=== PATIENT | female | born 1955 | race Caucasian/White ===

== ENCOUNTER 2022-12-21 16:53 | Inpatient (IN) | payer MEDICARE, SELFPAY ==
[2022-12-21] VITALS (44 sets, daily range): BP systolic 97–144; BP diastolic 72–101; PULSE 91–130; RESP 10–31; TEMP 35.4–37.8; O2SAT 94–100; BMI 22.0
--- NOTE | 2022-12-21 17:00 | NURSING ---
NO OLD EKG
--- NOTE | 2022-12-21 17:02 | CT_ITS ---
EXAM: CT HEAD WITHOUT INTRAVENOUS CONTRAST CLINICAL INDICATION: Unresponsive TECHNIQUE: Multiple axial images were obtained of the head without intravenous contrast. This CT exam was performed using one or more of the following dose reduction techniques: automated exposure control, adjustment of the mA and/or kV according to patient size, and/or use of iterative reconstruction technique. COMPARISON: No relevant prior studies available. FINDINGS: BRAIN AND EXTRA-AXIAL SPACES: Unremarkable. No intra- or extra-axial hemorrhage. No evidence of acute infarct. No intracranial mass or mass effect. There is preservation of the palacios/white matter interface. Posterior fossa structures are unremarkable. Ventricles are appropriate for age. No hydrocephalus. Basal cisterns are patent. BONES/JOINTS: Unremarkable. No discrete lytic or blastic abnormalities. SINUSES: Unremarkable as visualized. Clear. MASTOID AIR CELLS: Unremarkable. Clear. ORBITS: Visualized globes, extraocular muscles, optic nerves and retrobulbar fat appear unremarkable. CT/Brain/Head without Contrast IMPRESSION: Negative head/brain CT without intravenous contrast. Electronically Signed: Cesar Knott MD at 18:27 EDT ,
[2022-12-21] MEDS: fentaNYL 100 MCG/2 ML Ampul 50 MCG IV (17:20)
[2022-12-21] MEDS: Propofol 10MG/Ml 1,000 MG/100 ML Bottle 3.7 MG CONT INF (17:25)
[2022-12-21] MEDS: fentaNYL drip 100 ML 2.5 MCG CONT INF (17:25)
--- NOTE | 2022-12-21 17:27 | RAD_ITS ---
INDICATION: Dyspnea EXAMINATION/TECHNIQUE: X-RAY - XR Chest 1 View COMPARISON: FINDINGS: LINES/DEVICES: Endotracheal tube with tip 31 mm above the chely. Nasogastric tube in the stomach.. LUNGS: Interstitial thickening and infiltrates in the left lung. Mild right perihilar opacity. No pneumothorax. MEDIASTINUM AND CARDIOVASCULAR STRUCTURES: Cardiac silhouette not enlarged. Central airways and mediastinal contour are unremarkable. BONES AND SOFT TISSUES: Unremarkable. RAD/Chest 1 View (Portable) IMPRESSION: Interstitial thickening and infiltrates in the left lung. Mild right perihilar opacity. Electronically Signed: Ministerio Garcia DO at 17:41 EDT ,
--- NOTE | 2022-12-21 17:30 | ED.RN ---
non-violent restraints placed at this time d/t ET tube.
[2022-12-21 17:34] LABS: Mucous, Urine 0 SEEN /hpf (<or=2+)
[2022-12-21] MEDS: 0.9% Normal Saline (1000mL) 1,000 ML 1000 ML IV (17:34)
[2022-12-21 17:36] LABS: Allen Test Positive; Base Excess -9 mmol/L (-2 to +2); Bicarbonate 17.9 mmol/L (22-26); Blood Gas Specimen Type ART; Mode AC; O2 Delivery Device Adult Vent; PEEP 5; PO2 113 mmHG (75-100); RR 14; SITE R Radial; SO2 98 % (95-99); Total Carbon Dioxide 19 mmol/L; pCO2 38.9 mmHg (35-45); pH 7.27 (7.35-7.45)
[2022-12-21 17:38] LABS: Absolute Lymphocyte Count 5.73 X10^3/uL (0.83-4.51); Absolute Neutrophil Count 0.5 X10^3/uL (2.0-7.7); Basophil# 0.08 X10^3/uL; Basophil% 1.2 % (0-1); Eosinophil# 0.08 X10^3/uL; Eosinophils% 1.2 % (0-5); Hematocrit 41.2 % (37-47); Hemoglobin 13.2 g/dL (12.0-15.0); Lymphocyte # 5.73 X10^3/ul (0.83-4.51); Lymphocyte % 83.8 % (19-41); Mean Corpuscular Hgb 29.4 pg (27.0-32.0); Mean Corpuscular Volume 91.8 fL (81-99); Monocyte% 4.4 % (0-10); NRBC Flagged by Analyzer 0.6 % (0-5); Neutrophil # 0.45 X10^3/uL (2.7-7.7); Neutrophil % 6.5 % (47-70); POSITIVE DIFFERENTIAL YES; POSITIVE MORPHOLOGY YES; Platelet Count 190 K/mm3 (150-450); RBC Distribution Width CV 12.9 % (11.6-14.6); RBC Distribution Width SD 43.4 fl (35.1-43.9); Red Blood Count 4.49 M/mm3 (4.2-5.4); White Blood Count 6.8 K/mm3 (4.4-11.0)
[2022-12-21 17:45] LABS: International Normalized Ratio 1.3; Partial Thromboplast Time 41.1 Seconds (24.1-36.2); Prothrombin Time (Protime)PT. 16.5 SECONDS (11.7-14.9)
[2022-12-21 18:03] LABS: AST(SGOT) 385 U/L (15-37); Alanine Aminotransfer ALT/SGPT 392 U/L (13-56); Alkaline Phosphatase 133 U/L (45-117); Anion Gap 16 (5-15); BUN 18 mg/dL (7-18); BUN/Creat Ratio 12.6 RATIO (10-20); Calcium,Total 8.3 mg/dL (8.5-10.1); Chloride 107 mmol/L (98-107); Creatinine, Serum 1.43 mg/dL (0.55-1.02); EST Glomerular Filtration Rate 39 mL/min (>60); Est Glom Filt Rate - Afr Amer 47 mL/min (>60); Estimated Creatinine Clearance 36.72 ml/min; Globulin 3.1 g/dL (2.2-4.2); Glucose 265 mg/dL (74-106); Potassium 3.2 mmol/L (3.5-5.1); Protein, Total 6.1 g/dL (6.4-8.2); Sodium Level 144 mmol/L (136-145); Troponin-I HS (w/2H Reflex) 85 pg/mL (3.0-54.0)
[2022-12-21 18:05] LABS: Color, Urine Yellow (Yellow); Glucose, Dipstick 100 mg/dl (Normal); Ketone-Dipstick 5 mg/dl (Negative); Leukocyte Esterase-Dipstick Negative /ul (Negative); Nitrite-Dipstick Negative (Negative); Occult Blood-Urine 250 /ul (Negative); Protein-Dipstick 500 mg/dl (Negative); Specific Gravity, Urine 1.015 (1.002-1.030); Urine Bilirubin Dipstick Negative (Negative); Urine Clarity Sl. Cloudy (Clear); Urine Urobilinogen Normal (Normal); Urine pH 6.5 (5.0 - 8.0)
[2022-12-21 18:08] LABS: CPK Total, Creatine Kinase 144 U/L (26-192); Triglycerides 184 mg/dL
[2022-12-21 18:16] LABS: Lactic Acid 8.9 mmol/L (0.4-1.9)
[2022-12-21 18:29] LABS: Differential Indicated SCAN CRITERIA MET
[2022-12-21 18:30] LABS: Red Blood Cells-Urine 50-100 SEEN /hpf (0-5); White Blood Cells 0-5 SEEN /hpf (0-5)
[2022-12-21 18:30] LABS: Atypical Lymphocyte 1+ %; Differential Comment SEE COMMENTS
[2022-12-21 18:31] LABS: Bacteria 1+ /hpf (None Seen); Hyaline Cast 0-5 SEEN /lpf (0-5); Squamous Epithelial Cells - UA 0-5 SEEN /hpf (5-10)
[2022-12-21 18:31] LABS: Anisocytosis RARE; Macrocytosis RARE; Platelet Estimate ADEQUATE (ADEQ); Red Cell Morphology N CHROM NORMAL (NORM C&C)
[2022-12-21] MEDS: 0.9% Normal Saline (1000mL) 1,000 ML 999 ML IV ×2 (18:37→20:45)
[2022-12-21] MEDS: Piperacil/Tazobactam 4.5 GM in 0.9% Normal Saline (100mL MB+) 100 ML IV (18:38)
--- NOTE | 2022-12-21 18:47 | EX.ED.DYSGE1 ---
HPI History of Present Illness Chief Complaint: Unresponsive Informant: spouse/S.O. Onset/Context/Timing Onset: Today Context: Sudden Onset Timing: Continuous Quality: Unresponsive Location: Generalized Narrative Narrative: Patient presents after cardiac arrest. states that they were outside and he was trying to remove a tree stump using a chain and his truck. states that she was picking up sticks and then bent over. states he got out of his truck and went over and saw that she was unresponsive. states he laid her flat and started CPR. states he called 911. EMS continued CPR. EMS validation protocols and was able to get a return of spontaneous circulation. EMS inserted a Artemio airway. [facility] Medical History (Updated 12/21/22 @ 20:[address] Camilo Burnett DO) Asthma GERD (gastroesophageal reflux disease) Obstructive sleep apnea Allergy/AdvReac Type Severity Reaction Status Date / Time Unable to Assess Allergy Verified 12/21/22 17:05 Family History (Updated 12/21/22 @ 21:[address] Jt Dunaway MD) Other CVA (cerebral vascular accident) Diabetes Heart disease Surgical History (Updated 12/21/22 @ 21:[address] Jt Dunaway MD) H/O section Surgical History unable to obtain unable to obtain Social History Smoking Status: Never smoker ROS ROS ED Review of Systems ROS Unobtainable: due to endotracheal tube, due to mental condition and due to mental status EXAM Physical Exam Const Vital Signs: 12/21/22 16:55 12/21/22 16:59 12/21/22 17:24 Temperature 97.5 F L Temperature Source Temporal Pulse Rate 130 H 121 H Respiratory Rate 20 H 15 Blood Pressure 144/93 H 104/81 H Blood Pressure Mean 110 88 Pulse Ox 100 100 96 Oxygen Delivery Method Ambu-Bag Ambu-Bag Mechanical Ventilator Fraction of Inspired Oxygen (FIO2) 12/21/22 17:44 12/21/22 18:09 12/21/22 16:58 Temperature Temperature Source Pulse Rate 122 H 121 H 122 H Respiratory Rate 16 18 Blood Pressure 109/79 111/76 Blood Pressure Mean 89 87 Pulse Ox 99 Oxygen Delivery Method Fraction of Inspired Oxygen (FIO2) 70 12/21/22 17:02 12/21/22 18:00 12/21/22 18:30 Temperature Temperature Source Pulse Rate 120 H 120 H Respiratory Rate 16 18 Blood Pressure 111/84 H 115/91 H Blood Pressure Mean 93 99 Pulse Ox 94 94 Oxygen Delivery Method Mechanical Ventilator Mechanical Ventilator Mechanical Ventilator Fraction of Inspired Oxygen (FIO2) 12/21/22 18:41 12/21/22 19:15 12/21/22 19:20 Temperature 95.8 F L 95.9 F L Temperature Source Core Core Pulse Rate 120 H 115 H Respiratory Rate 18 16 Blood Pressure 115/91 H 123/90 H Blood Pressure Mean 99 101 Pulse Ox 95 96 Oxygen Delivery Method Mechanical Ventilator Mechanical Ventilator Fraction of Inspired Oxygen (FIO2) 12/21/22 18:48 12/21/22 18:50 12/21/22 19:00 Temperature Temperature Source Pulse Rate 119 H 118 H 115 H Respiratory Rate 11 L 21 H 12 Blood Pressure 114/92 H Blood Pressure Mean 99 Pulse Ox 95 96 97 Oxygen Delivery Method Mechanical Ventilator Fraction of Inspired Oxygen (FIO2) 12/21/22 19:09 12/21/22 19:10 12/21/22 19:15 Temperature Temperature Source Pulse Rate 121 H 114 H Respiratory Rate 27 H 14 Blood Pressure 123/90 H Blood Pressure Mean 101 Pulse Ox 95 96 Oxygen Delivery Method Fraction of Inspired Oxygen (FIO2) 60 12/21/22 19:20 12/21/22 19:30 12/21/22 19:40 Temperature Temperature Source Pulse Rate 117 H 116 H 120 H Respiratory Rate 18 19 H 20 H Blood Pressure 128/83 H Blood Pressure Mean 96 Pulse Ox 96 96 96 Oxygen Delivery Method Mechanical Ventilator Fraction of Inspired Oxygen (FIO2) 12/21/22 19:45 12/21/22 19:50 12/21/22 20:00 Temperature Temperature Source Pulse Rate 118 H 112 H 113 H Respiratory Rate 21 H 19 H 19 H Blood Pressure 144/79 H 121/101 H Blood Pressure Mean 98 109 Pulse Ox 97 97 96 Oxygen Delivery Method Mechanical Ventilator Fraction of Inspired Oxygen (FIO2) 12/21/22 20:10 12/21/22 20:15 12/21/22 20:20 Temperature Temperature Source Pulse Rate 118 H 116 H 118 H Respiratory Rate 16 31 H Blood Pressure 130/87 H Blood Pressure Mean 96 Pulse Ox 97 96 97 Oxygen Delivery Method Fraction of Inspired Oxygen (FIO2) 12/21/22 20:30 12/21/22 20:40 12/21/22 20:45 Temperature Temperature Source Pulse Rate 120 H 114 H 117 H Respiratory Rate 13 12 Blood Pressure 129/80 H 122/86 H Blood Pressure Mean 96 99 Pulse Ox 97 97 97 Oxygen Delivery Method Mechanical Ventilator Mechanical Ventilator Fraction of Inspired Oxygen (FIO2) 12/21/22 20:50 Temperature Temperature Source Pulse Rate 116 H Respiratory Rate 11 L Blood Pressure Blood Pressure Mean Pulse Ox 96 Oxygen Delivery Method Fraction of Inspired Oxygen (FIO2) Positive well nourished and well developed General Appearance ED: well developed and NAD HEENT Reports moist mucous membranes Resp clear to auscultation bilaterally Resp Narrative: Breath sounds were equal bilaterally with mechanical ventilation. Cardio regular rhythm Rate: tachycardic GI non-distended Palpation: soft Extremity General Extremety ED: Negative for edema General Extremity: Negative for edema Neuro Neuro Narrative: Patient is unresponsive on examination. Patient was unable to protect her airway. Patient was not following commands. MDM MDM MDM Narrative Medical decision making narrative: Differential diagnosis includes cardiac dysrhythmia, cardiac ischemia, sepsis, infection, anemia, coagulopathy, electrolyte abnormality, stroke, and intracranial bleeding. CT scan of the brain will be obtained to assess for intracranial bleeding and stroke. Chest x-ray will be obtained to assess for pneumonia and pneumothorax. EKG will be obtained to assess for cardiac dysrhythmia and cardiac ischemia. CBC will be obtained to assess for leukocytosis and anemia. Comprehensive metabolic profile will be obtained to assess for hepatic function, renal function, and electrolyte abnormality. Serum lactate will be obtained to assess for sepsis. Urinalysis will be obtained to assess for urinary tract infection. High-sensitivity troponin will be obtained to assess for cardiac ischemia. 2-hour repeat high-sensitivity troponin will be obtained to assess for ongoing cardiac ischemia. Lab Data Attestation: I reviewed the patient's lab results. Lab results narrative: CBC was reviewed and was essentially within normal limits. However there was 2.9% immature granulocytes on differential. PT with INR and PTT were reviewed. Pro time was 16.5, INR is 1.3, and PTT was 41.1. Comprehensive metabolic profile showed a mild hypokalemia of 3.2 and creatinine of 1.43. Glucose was slightly elevated at 265. Anion gap was slightly increased at 16. AST was slightly elevated at 385 and ALT was 392. Alkaline phosphatase was slightly elevated at 133. Serum lactate was reviewed and was elevated at 8.9. Total CPK was normal at 944. High-sensitivity troponin was reviewed and was slightly elevated at 85. Urinalysis was reviewed. Occult blood was 250 with 50-100 red blood cells. There is 1+ bacteria but 0-5 white blood cells. Leukocyte esterase was negative. Arterial blood gas was reviewed and shows a pH of 2.72, PCO2 of 38.9, PO2 of only 13.4, bicarb of 17.9, and 97.8% oxygen saturation. Labs: Laboratory Results - last 24 hr 12/21/22 12/21/22 12/21/22 17:00 17:25 19:56 WBC 6.8 RBC 4.49 Hgb 13.2 Hct 41.2 MCV 91.8 MCH 29.4 MCHC 32.0 RDW Std Deviation 43.4 RDW Coeff of Suzette 12.9 Plt Count 190 MPV 12.0 Immature Gran % (Auto) 2.900 H Neut % (Auto) 6.5 L Lymph % (Auto) 83.8 H [place] % (Auto) 4.4 Eos % (Auto) 1.2 Baso % (Auto) 1.2 H Absolute Neuts (auto) 0.5 L Absolute Lymphs (auto) 5.73 H Nucleated RBC % 0.6 Differential Comment SEE COMMENTS Diff Path Review May foll Atypical Lymphocytes 1+ Platelet Estimate ADEQUATE RBC Morphology N CHROM Anisocytosis RARE Macrocytosis RARE PT 16.5 H INR 1.3 APTT 41.1 H Sodium 144 Potassium 3.2 L Chloride 107 Carbon Dioxide 21.0 Anion Gap 16 H BUN 18 Creatinine 1.43 H Estim Creat Clear Calc 36.72 Est GFR (MDRD) Af Amer 47 L Est GFR (MDRD) Non-Af 39 L BUN/Creatinine Ratio 12.6 Glucose 265 H Lactic Acid 8.9 H* Calcium 8.3 L Magnesium 2.0 Total Bilirubin 0.20 AST 385 H ALT 392 H Alkaline Phosphatase 133 H Total Creatine Kinase 144 Troponin I High Sens 85 H 83306 H* Total Protein 6.1 L Albumin 3.0 L Globulin 3.1 Albumin/Globulin Ratio 1.0 Triglycerides 184 Urine Color Yellow Urine Clarity Sl. Cloudy Urine pH 6.5 Ur Specific [place] 1.015 Urine Protein 500 H Urine Glucose (UA) 100 H Urine Ketones 5 H Urine Occult Blood 250 H Urine Nitrite Negative Urine Bilirubin Negative Urine Urobilinogen Normal Ur Leukocyte Esterase Negative Urine RBC 50-100 SEEN Urine WBC 0-5 SEEN Ur Squamous Epith Cells 0-5 SEEN Urine Bacteria 1+ Hyaline Casts 0-5 SEEN Urine Mucus 0 SEEN ABG Data ABG results: ABG 12/21/22 17:32 Specimen Type ART Sample Site R Radial pH 7.27 L Bicarbonate Actual 17.9 L Total CO2 19 Base Excess -9 L O2 Saturation 98 O2 % 70.0 ABG pCO2 38.9 ABG pO2 113 H Bello Test Positive Respiration Rate 14 O2 Delivery Device Adult Vent Vent Mode AC Tidal Volume 400.0 POC PEEP 5 Radiography Diagnostic Testing: Clinical Impression(s) from Imaging Studies Brain CT 12/21/22 17:02 IMPRESSION: Negative head/brain CT without intravenous contrast. Electronically Signed: Cesar Knott MD at 18:27 EDT , Chest X-Ray 12/21/22 17:27 IMPRESSION: Interstitial thickening and infiltrates in the left lung. Mild right perihilar opacity. Electronically Signed: Ministerio Garcia DO at 17:41 EDT , CT scan of the brain was obtained. There is no acute intracranial abnormality. This was interpreted by the radiologist and was also independently reviewed by myself. Portable 1 view chest x-ray was obtained. On my independent interpretation, lung almanzar show interstitial thickening and infiltrates of the left lung. There is mild right perihilar opacity noted. There is normal cardiac silhouette. Bony thorax is normal. Radiologist also interpreted the x-ray and agrees. EKG Initial EKG: Attestation: I personally reviewed and interpreted this EKG as follows: Interpretation: Sinus Tachycardia (126) and S-T Depression Comments: EKG was obtained. On my independent interpretation, it shows a sinus tachycardia with a rate of 126. MI interval was 124, QRS interval was 110, and QTc interval was 466. [place] was normal at 13. There is ST depression and leads II, III, aVF, and V3 through V6. Prior EKG tracings: not available for review Prior: No Prior Management Discussion w/another healthcare provider: Hospitalist (Dr. Dunaway) and Bulk System Operator (Dr. Kirkpatrick) Treatment and Re-Evaluation :: Patient was given IV fluids. Patient was started on Zosyn and vancomycin. Patient was also started on fentanyl and propofol drips for sedation. Case was discussed with Dr. Kirkpatrick from ICU. He recommended obtaining a sputum culture. This was ordered. Case was discussed with the hospitalist. He will admit the patient to ICU. Family understands and is agreeable with the plan. All questions were answered. Critical Care Time Critical Care Time: Yes Critical care time (excluding procedures): 30-74 minutes (44), Including time spent:, Discussing w/Patient &/or Family/[employer], Discussing w/Consultants, Arranging Admission or Transfer and Performing Direct Patient Care at Bedside Discharge Plan Dx/Rx/DC Orders Clinical Impression: Cardiopulmonary arrest with successful resuscitation, Pneumonia, Acidosis, lactic Disposition Disposition: Acute Care Hospital [facility] Discharge Date/Time: 12/21/22 22:30
[2022-12-21] MEDS: Vancomycin HCl 1,500 MG in 0.9% Normal Saline (500mL Bag) 500 ML 250 MG IV (19:14)
[2022-12-21 19:44] LABS: Reflex Troponin-HS? (from REC) Y
[2022-12-21 20:40] LABS: Troponin-I HS 10605 pg/mL (3.0-54.0)
--- NOTE | 2022-12-21 20:40 | ED.RN ---
Dr. Burnett aware of troponin
--- NOTE | 2022-12-21 21:04 | CT_ITS ---
We are attempting to reach an attending provider to discuss findings. An addendum with communication details will be sent when the communication is complete. EXAM: CT ANGIOGRAPHY CHEST WITHOUT AND WITH INTRAVENOUS CONTRAST CLINICAL INDICATION: dyspnea TECHNIQUE: Helically acquired angiography images were obtained of the chest without and with intravenous contrast. This CT exam was performed using one or more of the following dose reduction techniques: automated exposure control, adjustment of the mA and/or kV according to patient size, and/or use of iterative reconstruction technique. MIP reconstructed images were created and reviewed. CONTRAST: IV 75mL [id number] RADIATION DOSE: Total DLP: 307.26 mGy-cm. COMPARISON: Portable chest radiograph of this same date. FINDINGS: PULMONARY ARTERIES: Unremarkable. Normal in caliber. No evidence of pulmonary embolism. AORTA: Unremarkable. Normal in caliber. No evidence of dissection. GREAT VESSELS OF AORTIC ARCH: Unremarkable. Normal in caliber. No evidence of dissection. LUNGS AND PLEURAL SPACES: There is a tiny pneumothorax on the right, located laterally near the right rib fractures. No left-sided pneumothorax. Groundglass opacities are noted centrally within the upper lobes, greater on the left. Airspace disease is noted within the dependent portion of both upper lobes, left greater than right. Extensive consolidation with air bronchograms noted within the lower lobes, left greater than right. Trace of pleural fluid on the right. No cavitary pulmonary lesion. HEART: Coronary artery calcification is present. No significant pericardial effusion. MEDIASTINUM: Unremarkable. Esophagus is unremarkable. No hiatal hernia. Normal to upper normal size mediastinal lymph nodes are present. No adenopathy is identified. THYROID: Unremarkable. No thyroid lesions. BONES/JOINTS: There are acute mildly displaced fractures of the lateral right fourth, fifth, sixth, and seventh ribs. No acute left rib fracture. Accentuated thoracic kyphosis. Midthoracic degenerative spurring. No acute thoracic wedge compression fracture. No acute sternal fracture. No suspicious lytic or blastic abnormality. INTRAPERITONEAL SPACE: Visualized portions of the liver, adrenal glands, pancreas and kidneys are unremarkable. Dense calcification noted within the lower pole of the spleen, which is normal in size. No pneumoperitoneum. TUBES, LINES AND DEVICES: ET tube is in place within the trachea with its tip above the level of chely. NG tube is in place and extends into the gastric lumen. CT/CTA Chest W/WO Contrast IMPRESSION: 1. Negative for PE. 2. No thoracic aortic dissection. 3. Extensive bilateral pulmonary infiltrates, left greater than right, most likely pulmonary edema though superimposed pneumonia could also be present. 4. Acute lateral right rib fractures with a tiny/1% right-sided pneumothorax. Minimal right pleural effusion. 5. ET tube and NG tube in place. Nonstandard communication protocol initiated. Electronically Signed: Carlo Collier MD at 1:06 EDT ,
--- NOTE | 2022-12-21 21:19 | PCM.HP.STD ---
Documented by User: Dr. Jt Dunaway MD 12/22/22 00:58 HPI - General General Date of Admission: 12/21/22 Date of Service: 12/21/22 Chief Complaint: Cardiac arrest HPI Narrative ALYSHA MCMULLEN, is a 67 F significant history of seasonal allergies and asthma who presented to emergency department with cardiac arrest. Of note patient and her was clearing some wood at the backyard. Specifically patient was gardening some sticks while her was getting ready to move some log via chain who hooked to a truck. The patient who was previously doing good and had not been seen recently sick was suddenly found slumping over. Her noted the patient was unresponsive so he began CPR and called 911. EMS attended to the patient. Patient had ACLS and defibrillation and was brought to emergency department. At the emergency department a Artemio airway was switched with ET tube and patient was put on mechanical ventilation. Patient troponin was 85. Repeat troponin was 10,605. Emergency dependably discussed the case with critical care physician and patient will be admitted to the intensive care units [facility] Medical History (Updated 12/22/22 @ 00:[address] Jt Dunaway MD) Asthma GERD (gastroesophageal reflux disease) Obstructive sleep apnea Allergy/AdvReac Type Severity Reaction Status Date / Time Unable to Assess Allergy Verified 12/21/22 17:05 Family History (Updated 12/21/22 @ 21:[address] Jt Dunaway MD) Other CVA (cerebral vascular accident) Diabetes Heart disease Surgical History (Updated 12/21/22 @ 21:[address] Jt Dunaway MD) H/O section Surgical History unable to obtain Social History Smoking Status: Never smoker ROS Review of Systems ROS Unobtainable: other Details: Pertinent positives and pertinent negatives that could be provided by patient's family is as noted in HPI. All other systems were reviewed patient's family did not know or they were negative. Vital Signs Vital Signs Vital Signs: 12/21/22 16:55 12/21/22 16:59 12/21/22 17:24 Temperature 97.5 F L Temperature Source Temporal Pulse Rate 130 H 121 H Respiratory Rate 20 H 15 Blood Pressure 144/93 H 104/81 H Blood Pressure Mean 110 88 Pulse Ox 100 100 96 Oxygen Delivery Method Ambu-Bag Ambu-Bag Mechanical Ventilator Fraction of Inspired Oxygen (FIO2) 12/21/22 17:44 12/21/22 18:09 12/21/22 16:58 Temperature Temperature Source Pulse Rate 122 H 121 H 122 H Respiratory Rate 16 18 Blood Pressure 109/79 111/76 Blood Pressure Mean 89 87 Pulse Ox 99 Oxygen Delivery Method Fraction of Inspired Oxygen (FIO2) 70 12/21/22 17:02 12/21/22 18:00 12/21/22 18:30 Temperature Temperature Source Pulse Rate 120 H 120 H Respiratory Rate 16 18 Blood Pressure 111/84 H 115/91 H Blood Pressure Mean 93 99 Pulse Ox 94 94 Oxygen Delivery Method Mechanical Ventilator Mechanical Ventilator Mechanical Ventilator Fraction of Inspired Oxygen (FIO2) 12/21/22 18:41 12/21/22 19:15 12/21/22 19:20 Temperature 95.8 F L 95.9 F L Temperature Source Core Core Pulse Rate 120 H 115 H Respiratory Rate 18 16 Blood Pressure 115/91 H 123/90 H Blood Pressure Mean 99 101 Pulse Ox 95 96 Oxygen Delivery Method Mechanical Ventilator Mechanical Ventilator Fraction of Inspired Oxygen (FIO2) 12/21/22 18:48 12/21/22 18:50 12/21/22 19:00 Temperature Temperature Source Pulse Rate 119 H 118 H 115 H Respiratory Rate 11 L 21 H 12 Blood Pressure 114/92 H Blood Pressure Mean 99 Pulse Ox 95 96 97 Oxygen Delivery Method Mechanical Ventilator Fraction of Inspired Oxygen (FIO2) 12/21/22 19:09 12/21/22 19:10 12/21/22 19:15 Temperature Temperature Source Pulse Rate 121 H 114 H Respiratory Rate 27 H 14 Blood Pressure 123/90 H Blood Pressure Mean 101 Pulse Ox 95 96 Oxygen Delivery Method Fraction of Inspired Oxygen (FIO2) 60 12/21/22 19:20 12/21/22 19:30 12/21/22 19:40 Temperature Temperature Source Pulse Rate 117 H 116 H 120 H Respiratory Rate 18 19 H 20 H Blood Pressure 128/83 H Blood Pressure Mean 96 Pulse Ox 96 96 96 Oxygen Delivery Method Mechanical Ventilator Fraction of Inspired Oxygen (FIO2) 12/21/22 19:45 12/21/22 19:50 12/21/22 20:00 Temperature Temperature Source Pulse Rate 118 H 112 H 113 H Respiratory Rate 21 H 19 H 19 H Blood Pressure 144/79 H 121/101 H Blood Pressure Mean 98 109 Pulse Ox 97 97 96 Oxygen Delivery Method Mechanical Ventilator Fraction of Inspired Oxygen (FIO2) Weight Weight: 62 kg Body Mass Index (BMI) 22.0 Physical Exam Narrative Physical exam: General: Intubated and sedated on mechanical ventilation Head: Normocephalic, atraumatic, no tenderness Eyes: Miotic pupils (on fentanyl and propofol drip). ENT: ET tube in place. Neck: Nontender, No thyromegaly. CVS: Tachycardia. S1-S2 present. No murmur, gallop or rub. Respiratory : On ventilator. Rales; Chest wall nontender Abdomen: Soft, nontender, nondistended, normal bowel sounds, no masses : Villatoro catheter in place Back: Nontender, no CVA tenderness, Skin: Normal color, no trauma, abrasions Neuro: Intubated and sedated on mechanical ventilation Psychiatry: Intubated and sedated on mechanical ventilation Results Lab / Micro Data 12/21/22 17:00 12/21/22 17:00 Labs: Laboratory Results - last 24 hr 12/21/22 17:00: WBC 6.8, RBC 4.49, Hgb 13.2, Hct 41.2, MCV 91.8, MCH 29.4, MCHC 32.0, RDW Std Deviation 43.4, RDW Coeff of Suzette 12.9, Plt Count 190, MPV 12.0, Immature Gran % (Auto) 2.900 H, Neut % (Auto) 6.5 L, Lymph % (Auto) 83.8 H, [place] % (Auto) 4.4, Eos % (Auto) 1.2, Baso % (Auto) 1.2 H, Absolute Neuts (auto) 0.5 L, Absolute Lymphs (auto) 5.73 H, Nucleated RBC % 0.6, Differential Comment SEE COMMENTS, Diff Path Review May foll, Atypical Lymphocytes 1+, Platelet Estimate ADEQUATE, RBC Morphology N CHROM, Anisocytosis RARE, Macrocytosis RARE, PT 16.5 H, INR 1.3, APTT 41.1 H, Sodium 144, Potassium 3.2 L, Chloride 107, Carbon Dioxide 21.0, Anion Gap 16 H, BUN 18, Creatinine 1.43 H, Estim Creat Clear Calc 36.72, Est GFR (MDRD) Af Amer 47 L, Est GFR (MDRD) Non-Af 39 L, BUN/Creatinine Ratio 12.6, Glucose 265 H, Lactic Acid 8.9 H*, Calcium 8.3 L, Total Bilirubin 0.20, AST 385 H, ALT 392 H, Alkaline Phosphatase 133 H, Total Creatine Kinase 144, Troponin I High Sens 85 H, Total Protein 6.1 L, Albumin 3.0 L, Globulin 3.1, Albumin/Globulin Ratio 1.0, Triglycerides 184 12/21/22 17:25: Urine Color Yellow, Urine Clarity Sl. Cloudy, Urine pH 6.5, Ur Specific Hudson 1.015, Urine Protein 500 H, Urine Glucose (UA) 100 H, Urine Ketones 5 H, Urine Occult Blood 250 H, Urine Nitrite Negative, Urine Bilirubin Negative, Urine Urobilinogen Normal, Ur Leukocyte Esterase Negative, Urine RBC 50-100 SEEN, Urine WBC 0-5 SEEN, Ur Squamous Epith Cells 0-5 SEEN, Urine Bacteria 1+, Hyaline Casts 0-5 SEEN, Urine Mucus 0 SEEN 12/21/22 19:56: Troponin I High Sens 35435 H* Micro: Microbiology 12/21/22 17:11 Mucosa - Nasopharyngeal Rapid RSV (DFA) - Final 12/21/22 17:05 Nasal Secretion SARS-CoV-2 & FLU Antigen (Rapid) - Final ABG Data ABG results: ABG 12/21/22 17:32 Specimen Type ART Sample Site R Radial pH 7.27 L Bicarbonate Actual 17.9 L Total CO2 19 Base Excess -9 L O2 Saturation 98 O2 % 70.0 ABG pCO2 38.9 ABG pO2 113 H Bello Test Positive Respiration Rate 14 O2 Delivery Device Adult Vent Vent Mode AC Tidal Volume 400.0 POC PEEP [address] 12/21/22 17:02 IMPRESSION: Negative head/brain CT without intravenous contrast. Electronically Signed: Cesar Knott MD at 18:27 EDT , Chest X-Ray 12/21/22 17:27 IMPRESSION: Interstitial thickening and infiltrates in the left lung. Mild right perihilar opacity. Electronically Signed: Ministerio Garcia DO at 17:41 EDT Reading Location ID and State: [facility] / [place] Tel [phone], Service support , Assessment & Plan Assessment/Plan (1) Pneumonia: QUALIFIERS: Pneumonia type: aspiration pneumonia Aspiration pneumonia type: due to gastric secretions Laterality: bilateral Lung location: unspecified part of lung Qualified Code(s): J69.0 - Pneumonitis due to inhalation of food and vomit (2) Cardiopulmonary arrest with successful resuscitation: (3) Septic shock: PLAN: Plan Cardiac arrest with ROSC Status post intubation. Admit to intensive care unit. Impression of brain CT by radiology: Negative head/brain CT without intravenous contrast. Hospitalist independent interpretation of brain CT: Agrees with radiology interpretation Echocardiogram Chest CT ordered at the emergency department, follow-up Septic shock from possible aspiration pneumonia. The patient presented with sepsis due to (infection) with acute sepsis related organ dysfunction as evidenced by (organ dysfunction/s). SIRS criteria: Respiratory rate more than 20 Heart rate more than 90 White count of 6.8. Lactic acid of 8.9 but acute secondary to hypoxia. Trend Tmax of 100.1 Fahrenheit. SARS Cov 2 and flu antigen negative. Blood cultures ordered emergency department, follow. Urine culture ordered emergency department, follow. Radiologist impression of chest x-ray: Interstitial thickening and infiltrate in the left lung. Mild right perihilar opacity. Vancomycin and Zosyn was started emergency department and continued. Elevated troponin Initial troponin was 85. Trended to 10,605. Cannot rule out non-STEMI. However cannot rule out rule out elevated troponin from chest compression and defibrillation Full dose aspirin given and baby aspirin daily. ED doc discussed with cardiology on-call and recommendation was to start beta-vu if blood pressure is stable. We will start patient on low-dose metoprolol. DVT prophylaxis On heparin drip for elevated troponin. Time spent in the patient's overall evaluation,decision-making process, review of diagnostic data, adjustment of management, discussion with other providers, nursing nursing and ancillary staff involved in patient's care documentation, 75 minutes. Sepsis Attestation Sepsis Alert: Yes Sepsis Attestation: Agree w/Sepsis Date exam was performed: 12/22/22 Time exam was performed: 21:30 Possible Source of Sepsis: Pulmonary Sepsis Organ Dysfunction Criteria Present: Lactic Acid > 2 mmol/L Fluid Resuscitation Fluid Resuscitation ordered: 30 ml/kg fluid bolus ordered Charges/Coding Visit Charges Inpatient E&M: 19502 Init Hosp L3 Documented by User: Tim Valenzuela 12/21/22 22:55 HPI - General General Date of Admission: 12/21/22 [facility] Medical History (Updated 12/22/22 @ 00:[address] Jt Dunaway MD) Asthma GERD (gastroesophageal reflux disease) Obstructive sleep apnea Allergy/AdvReac Type Severity Reaction Status Date / Time Unable to Assess Allergy Verified 12/21/22 17:05 Family History (Updated 12/21/22 @ 21:[address] Jt Dunaway MD) Other CVA (cerebral vascular accident) Diabetes Heart disease Surgical History (Updated 12/21/22 @ 21:[address] Jt Dunaway MD) H/O section Surgical History unable to obtain Social History Smoking Status: Never smoker Results Lab / Micro Data 12/21/22 17:00 12/21/22 17:00 Assessment & Plan Assessment/Plan (1) Pneumonia: QUALIFIERS: Pneumonia type: aspiration pneumonia Aspiration pneumonia type: due to gastric secretions Laterality: bilateral Lung location: unspecified part of lung Qualified Code(s): J69.0 - Pneumonitis due to inhalation of food and vomit (2) Cardiopulmonary arrest with successful resuscitation: (3) Septic shock:
[2022-12-21 21:28] LABS: Reflex Lactate? Y
[2022-12-21] MEDS: Metoprolol Tartrate 5 MG/5 ML Vial IV (21:58)
[2022-12-21] MEDS: Heparin Injection (Vial) 5,000 UNIT/ML VIAL 4000 UNIT IV (23:33)
[2022-12-21] MEDS: HEPARIN/D5w 25,000 UNITS 25,000 UNITS/250 ML IV.SOLN. 7 UNITS CONT INF (23:37)
[2022-12-22] VITALS (38 sets, daily range): BP systolic 104–161; BP diastolic 63–90; PULSE 83–123; RESP 14–18; TEMP 37.2–38.3; O2SAT 30–100
[2022-12-22 00:14] LABS: CPK Total, Creatine Kinase 1904 U/L (26-192); Triglycerides 91 mg/dL
[2022-12-22 00:16] LABS: Troponin-I HS 24946 pg/mL (3.0-54.0)
[2022-12-22] MEDS: 0.9% Normal Saline (1000mL) 1,000 ML 75 ML IV ×2 (00:21→13:21)
[2022-12-22] MEDS: Chlorhexidine 15 ML PO ×3 (00:22→21:13)
[2022-12-22] MEDS: Potassium Chloride Oral Soln 20 MEQ/15 ML UDC 40 MEQ PO (00:26)
[2022-12-22] MEDS: Famotidine 20 MG Tablet GT ×3 (00:26→21:13)
[2022-12-22] MEDS: Aspirin 325 MG Tablet PO (00:27)
--- NOTE | 2022-12-22 00:49 | RAD_ITS ---
EXAM: XR ABDOMEN, 1 VIEW CLINICAL INDICATION: OG Placement TECHNIQUE: Frontal supine view of the abdomen/pelvis. COMPARISON: Portable chest radiograph and CTA chest of 12/21/2022. FINDINGS: LOWER THORAX: Dense consolidation noted within the left lower lobe, silhouetting the left hemidiaphragm, and this airspace disease has worsened since the earlier chest radiograph. GASTROINTESTINAL TRACT: Unremarkable. Non-obstructive. No bowel or stomach distention. ORGANS: Excreted contrast noted within both intrarenal collecting systems; no hydronephrosis. No organomegaly. No abnormal calcifications. BONES/JOINTS: Minimal thoracolumbar dextroscoliosis which may be positional. No acute osseous abnormality. SOFT TISSUES: No acute pathology. TUBES, LINES AND DEVICES: OG tube has been advanced and is in satisfactory position. The tip of the tube is projected over the proximal gastric body while the sidehole of the tube is projected in the region of the gastric cardia. RAD/Abdomen Single View IMPRESSION: 1. Satisfactory OG tube positioning. 2. Worsening consolidation within the left lower lobe. Electronically Signed: Carlo Collier MD at 2:23 EDT ,
[2022-12-22 01:05] LABS: Allen Test Positive; Base Excess -5 mmol/L (-2 to +2); Bicarbonate 20.2 mmol/L (22-26); Blood Gas Specimen Type ART; Mode AC; O2 Delivery Device Adult Vent; PEEP 5; PO2 68 mmHG (75-100); RR 14; SITE R Radial; SO2 92 % (95-99); Total Carbon Dioxide 21 mmol/L; pCO2 36.9 mmHg (35-45); pH 7.35 (7.35-7.45)
--- NOTE | 2022-12-22 01:49 | PCM.RX.CS ---
Consult Antibiotic Management Pharmacy has been consulted to manage selected antiobiotic: Vancomycin Type of Intervention Type of Consult: Follow-up Labs Labs: Sodium 144 mmol/L (136-145) 12/21/22 17:00 Potassium 3.2 mmol/L (3.5-5.1) L 12/21/22 17:00 Chloride 107 mmol/L (98-107) 12/21/22 17:00 Carbon Dioxide 21.0 mmol/L (21.0-32.0) 12/21/22 17:00 Anion Gap 16 (5-15) H 12/21/22 17:00 BUN 18 mg/dL (7-18) 12/21/22 17:00 Creatinine 1.43 mg/dL (0.55-1.02) H 12/21/22 17:00 Est GFR (MDRD) Af Amer 47 mL/min (>60) L 12/21/22 17:00 Est GFR (MDRD) Non-Af 39 mL/min (>60) L 12/21/22 17:00 BUN/Creatinine Ratio 12.6 RATIO (10-20) 12/21/22 17:00 Glucose 265 mg/dL (74-106) H 12/21/22 17:00 Microbiology Microbiology: Microbiology 12/21/22 17:25 Urine Catheter - Villatoro Legionella Antigen - Final 12/21/22 17:25 Urine Catheter - Villatoro Streptococcus pneumoniae Antigen (M - Final 12/21/22 17:11 Mucosa - Nasopharyngeal Rapid RSV (DFA) - Final 12/21/22 17:05 Nasal Secretion SARS-CoV-2 & FLU Antigen (Rapid) - Final Estimated Creatinine Clearance Estimated Creatinine Clearance: 36.5 Goal Trough Goal Trough: 15-20 mcg/mL Pharmacy Plan for Drug Dosing Pharmacy Plan for Drug Dosing: Pharmacy Service will continue to monitor and adjust dosing as required. Follow-Up Labs Follow-Up Labs: Trough: Vancomycin Date/Time Labs Ordered Labs to be done on [date and time ordered]: 12/23 @ 6661
[2022-12-22] MEDS: Propofol 10MG/Ml 1,000 MG/100 ML Bottle 9.3 MG CONT INF (03:51)
[2022-12-22 03:52] LABS: Absolute Lymphocyte Count 0.72 X10^3/uL (0.83-4.51); Absolute Neutrophil Count 13.6 X10^3/uL (2.0-7.7); Basophil# 0.03 X10^3/uL; Basophil% 0.2 % (0-1); Hematocrit 41.7 % (37-47); Hemoglobin 13.9 g/dL (12.0-15.0); Lymphocyte # 0.72 X10^3/ul (0.83-4.51); Lymphocyte % 4.7 % (19-41); Mean Corp Hgb Conc 33.3 g/dL (32-36); Mean Corpuscular Hgb 29.5 pg (27.0-32.0); Mean Corpuscular Volume 88.5 fL (81-99); Mean Platelet Vol. 10.9 fl (6.2-12.0); Monocyte# 0.88 X10^3/uL; Monocyte% 5.8 % (0-10); NRBC Flagged by Analyzer 0 % (0-5); Neutrophil # 13.59 X10^3/uL (2.7-7.7); Platelet Count 214 K/mm3 (150-450); RBC Distribution Width CV 13.2 % (11.6-14.6); RBC Distribution Width SD 43.2 fl (35.1-43.9); Red Blood Count 4.71 M/mm3 (4.2-5.4); White Blood Count 15.3 K/mm3 (4.4-11.0)
[2022-12-22 04:21] LABS: ALB/GLOB Ratio 0.9 RATIO (0.9-2.4); AST(SGOT) 480 U/L (15-37); Alanine Aminotransfer ALT/SGPT 380 U/L (13-56); Albumin, Serum 3.1 g/dL (3.2-5.0); Alkaline Phosphatase 112 U/L (45-117); Anion Gap 8 (5-15); BUN 14 mg/dL (7-18); BUN/Creat Ratio 13.3 RATIO (10-20); Calcium,Total 7.7 mg/dL (8.5-10.1); Chloride 114 mmol/L (98-107); Creatinine, Serum 1.05 mg/dL (0.55-1.02); EST Glomerular Filtration Rate 56 mL/min (>60); Est Glom Filt Rate - Afr Amer 68 mL/min (>60); Globulin 3.3 g/dL (2.2-4.2); Glucose 177 mg/dL (74-106); Potassium 3.3 mmol/L (3.5-5.1); Protein, Total 6.4 g/dL (6.4-8.2); Sodium Level 146 mmol/L (136-145)
[2022-12-22 05:53] LABS: Partial Thromboplast Time > 200.0 Seconds (24.1-36.2)
--- NOTE | 2022-12-22 05:55 | ECHOD_ITS ---
Reason For Study: DYSPNEA Procedure This was a 2D Doppler, Color Flow transthoracic echocardiogram. Technically difficult study due to patient intubation. Patient scanned laying flat. Exam performed portable in ICU/CCU. Left Ventricle Normal size and thickness. The left ventricular ejection fraction is 55 %. Normal diastology for age. Mild apical hypokinesis. Right Ventricle Mildly dilated right ventricle. Normal systolic function. Atria The left and right atria are normal. Normal right atrium. Mitral Valve Normal mitral valve. Tricuspid Valve Normal tricuspid valve. Aortic Valve Normal aortic valve. Pulmonic Valve The pulmonic valve is not well visualized. Great Vessels The aortic root is not well visualized. Pericardium/Pleural Trivial pericardial effusion. MMode/2D Measurements & Calculations LVIDd: 3.3 cm IVSd: 0.85 cm Ao root diam: 2.8 cm LVIDs: 2.4 cm LVPWd: 0.87 cm FS: 26.4 % LAV(MOD-sp4): 40.4 ml LVAd ap4: 18.0 cm2 SV(MOD-sp4): 23.4 ml LVLd ap4: 7.4 cm EDV(MOD-sp4): 35.8 ml EDV(sp4-el): 37.1 ml LVAs ap4: 9.5 cm2 LVLs ap4: 6.4 cm ESV(MOD-sp4): 12.4 ml ESV(sp4-el): 12.0 ml EF(MOD-sp4): 65.3 % EF(sp4-el): 67.7 % SV(sp4-el): 25.1 ml LA A4 area: 15.1 cm2 LA dimension(2D): 3.0 cm RA A4 area: 12.2 cm2 TAPSE: 1.3 cm Time Measurements MV dec time: 0.11 sec Doppler Measurements & Calculations MV E max jose: 64.4 cm/sec Lat Peak E' Jose: 12.6 cm/sec Med Peak E' Jose: 7.9 cm/sec MV A max jose: 80.1 cm/sec E/E' lat: 5.1 E/E' med: 8.2 MV E/A: 0.80 MV V2 max: 87.1 cm/sec Ao V2 max: 135.8 cm/sec MV max P.0 mmHg MV dec slope: 605.9 cm/sec2 Ao max P.4 mmHg MV V2 mean: 58.2 cm/sec Ao V2 mean: 103.7 cm/sec MV mean P.5 mmHg Ao mean P.8 mmHg MV V2 VTI: 19.9 cm Ao V2 VTI: 26.7 cm AV (velocity ratio): 0.71 LV V1 max: 102.4 cm/sec PA V2 max: 101.2 cm/sec LV V1 max P.3 mmHg PA V2 mean: 74.5 cm/sec LV V1 mean P.7 mmHg LV V1 mean: 77.2 cm/sec LV V1 VTI: 19.1 cm ECHO/Echo Complete Interpretation Summary The left ventricular ejection fraction is 55 %. Mild apical hypokinesis Mildly dilated right ventricle. Ordering Physician: Jt Dunaway Referring Physician: ILENE JIMENEZ Performed By: Stephanie Tobin RCS
--- NOTE | 2022-12-22 06:49 | PCM.RX.CS ---
Consult Antibiotic Management Pharmacy has been consulted to manage selected antiobiotic: Vancomycin Type of Intervention Type of Consult: Follow-up Suspected Infection Suspected Infection: Pneumonia Labs Labs: Sodium 146 mmol/L (136-145) H 12/22/22 03:20 Potassium 3.3 mmol/L (3.5-5.1) L 12/22/22 03:20 Chloride 114 mmol/L (98-107) H 12/22/22 03:20 Carbon Dioxide 24.0 mmol/L (21.0-32.0) 12/22/22 03:20 Anion Gap 8 (5-15) 12/22/22 03:20 BUN 14 mg/dL (7-18) 12/22/22 03:20 Creatinine 1.05 mg/dL (0.55-1.02) H 12/22/22 03:20 Est GFR (MDRD) Af Amer 68 mL/min (>60) 12/22/22 03:20 Est GFR (MDRD) Non-Af 56 mL/min (>60) L 12/22/22 03:20 BUN/Creatinine Ratio 13.3 RATIO (10-20) 12/22/22 03:20 Glucose 177 mg/dL (74-106) H 12/22/22 03:20 Microbiology Microbiology: Microbiology 12/21/22 17:25 Urine Catheter - Villatoro Legionella Antigen - Final 12/21/22 17:25 Urine Catheter - Villatoro Streptococcus pneumoniae Antigen (M - Final 12/21/22 17:11 Mucosa - Nasopharyngeal Rapid RSV (DFA) - Final 12/21/22 17:05 Nasal Secretion SARS-CoV-2 & FLU Antigen (Rapid) - Final Goal Trough Goal Trough: 15-20 mcg/mL Pharmacy Plan for Drug Dosing Pharmacy Plan for Drug Dosing: DAILY ASSESSMENT Current Vancomycin Dose: 750mg Q24H Number of Doses Received: 1500mg x1 Current Renal Function: sCr 1.05 / CrCl 50 ml/min Renal Function Trend: slightly improved Lab/Micro: pending Any Change in Vanc Plan: Yes - increase Vancomycin dosing regimen to 500mg Q12H Pending Level: Vancomycin trough @ 0630 12/23/22 Pharmacy Service will continue to monitor and adjust dosing as required. Follow-Up Labs Follow-Up Labs: Trough: Vancomycin Date/Time Labs Ordered Labs to be done on [date and time ordered]: 12/23/22 0630
--- NOTE | 2022-12-22 07:05 | PCM.PN.HOSP ---
Subjective Subjective Intubated and sedated, family at bedside, presently getting echocardiogram Objective Data Objective Data Vital Signs: Vital Signs Temp Pulse Resp BP Pulse Ox O2 Del Method FiO2 99.4 F H 89 18 104/70 99 Mechanical Ventilator 50 12/22/22 06:00 12/22/22 06:00 12/22/22 06:00 12/22/22 06:00 12/22/22 06:00 12/22/22 06:00 12/22/22 06:00 Oxygen Delivery Method Mechanical Ventilator Weight: 59.3 kg Body Mass Index (BMI) 22.0 Intake & Output: Intake and Output for Last 24 Hours 12/20/22 12/21/22 12/22/22 23:59 23:59 23:59 Intake Total 3703.86 / 3718.16 401.21 / 401.21 Output Total 1650 / 1650 Balance 3703.86 / 2618.16 -1248.79 / -1248.79 Lab / Micro Data 12/22/22 03:20 12/22/22 03:20 Labs: Laboratory Results - last 24 hr 12/21/22 17:00: WBC 6.8, RBC 4.49, Hgb 13.2, Hct 41.2, MCV 91.8, MCH 29.4, MCHC 32.0, RDW Std Deviation 43.4, RDW Coeff of Suzette 12.9, Plt Count 190, MPV 12.0, Immature Gran % (Auto) 2.900 H, Neut % (Auto) 6.5 L, Lymph % (Auto) 83.8 H, [place] % (Auto) 4.4, Eos % (Auto) 1.2, Baso % (Auto) 1.2 H, Absolute Neuts (auto) 0.5 L, Absolute Lymphs (auto) 5.73 H, Nucleated RBC % 0.6, Differential Comment SEE COMMENTS, Diff Path Review May foll, Atypical Lymphocytes 1+, Platelet Estimate ADEQUATE, RBC Morphology N CHROM, Anisocytosis RARE, Macrocytosis RARE, PT 16.5 H, INR 1.3, APTT 41.1 H, Sodium 144, Potassium 3.2 L, Chloride 107, Carbon Dioxide 21.0, Anion Gap 16 H, BUN 18, Creatinine 1.43 H, Estim Creat Clear Calc 36.72, Est GFR (MDRD) Af Amer 47 L, Est GFR (MDRD) Non-Af 39 L, BUN/Creatinine Ratio 12.6, Glucose 265 H, Lactic Acid 8.9 H*, Calcium 8.3 L, Total Bilirubin 0.20, AST 385 H, ALT 392 H, Alkaline Phosphatase 133 H, Total Creatine Kinase 144, Troponin I High Sens 85 H, Total Protein 6.1 L, Albumin 3.0 L, Globulin 3.1, Albumin/Globulin Ratio 1.0, Triglycerides 184 12/21/22 17:25: Urine Color Yellow, Urine Clarity Sl. Cloudy, Urine pH 6.5, Ur Specific [place] 1.015, Urine Protein 500 H, Urine Glucose (UA) 100 H, Urine Ketones 5 H, Urine Occult Blood 250 H, Urine Nitrite Negative, Urine Bilirubin Negative, Urine Urobilinogen Normal, Ur Leukocyte Esterase Negative, Urine RBC 50-100 SEEN, Urine WBC 0-5 SEEN, Ur Squamous Epith Cells 0-5 SEEN, Urine Bacteria 1+, Hyaline Casts 0-5 SEEN, Urine Mucus 0 SEEN 12/21/22 19:56: Magnesium 2.0, Troponin I High Sens 39821 H* 12/21/22 23:15: Total Creatine Kinase 1904 H, Troponin I High Sens 92433 H*, Triglycerides 91 12/22/22 03:20: WBC 15.3 H, RBC 4.71, Hgb 13.9, Hct 41.7, MCV 88.5, MCH 29.5, MCHC 33.3, RDW Std Deviation 43.2, RDW Coeff of Suzette 13.2, Plt Count 214, MPV 10.9, Immature Gran % (Auto) 0.300, Neut % (Auto) 89.0 H, Lymph % (Auto) 4.7 L, [place] % (Auto) 5.8, Eos % (Auto) 0.0, Baso % (Auto) 0.2, Absolute Neuts (auto) 13.6 H, Absolute Lymphs (auto) 0.72 L, Nucleated RBC % 0, Sodium 146 H, Potassium 3.3 L, Chloride 114 H, Carbon Dioxide 24.0, Anion Gap 8, BUN 14, Creatinine 1.05 H, Estim Creat Clear Calc 50.00, Est GFR (MDRD) Af Amer 68, Est GFR (MDRD) Non-Af 56 L, BUN/Creatinine Ratio 13.3, Glucose 177 H, Lactic Acid 4.0 H*, Calcium 7.7 L, Total Bilirubin 0.50, AST 480 H, ALT 380 H, Alkaline Phosphatase 112, Total Protein 6.4, Albumin 3.1 L, Globulin 3.3, Albumin/Globulin Ratio 0.9 12/22/22 05:20: APTT > 200.0 H* Micro: Microbiology 12/21/22 17:25 Urine Catheter - Villatoro Legionella Antigen - Final 12/21/22 17:25 Urine Catheter - Villatoro Streptococcus pneumoniae Antigen (M - Final 12/21/22 17:11 Mucosa - Nasopharyngeal Rapid RSV (DFA) - Final 12/21/22 17:05 Nasal Secretion SARS-CoV-2 & FLU Antigen (Rapid) - Final ABG Data ABG results: ABG 12/21/22 12/22/22 17:32 01:01 Specimen Type ART ART Sample Site R Radial R Radial pH 7.27 L 7.35 Bicarbonate Actual 17.9 L 20.2 L Total CO2 19 21 Base Excess -9 L -5 L O2 Saturation 98 92 L O2 % 70.0 50.0 ABG pCO2 38.9 36.9 ABG pO2 113 H 68 L Bello Test Positive Positive Respiration Rate 14 14 O2 Delivery Device Adult Vent Adult Vent Vent Mode AC AC Tidal Volume 400.0 400.0 POC PEEP 5 5 Radiography Diagnostic Testing: Radiology Impression Brain CT 12/21/22 17:02 IMPRESSION: Negative head/brain CT without intravenous contrast. Electronically Signed: Cesar Knott MD at 18:27 EDT , Chest X-Ray 12/21/22 17:27 IMPRESSION: Interstitial thickening and infiltrates in the left lung. Mild right perihilar opacity. Electronically Signed: Ministerio Garcia DO at 17:41 EDT , Chest CTA 12/21/22 21:04 IMPRESSION: 1. Negative for PE. 2. No thoracic aortic dissection. 3. Extensive bilateral pulmonary infiltrates, left greater than right, most likely pulmonary edema though superimposed pneumonia could also be present. 4. Acute lateral right rib fractures with a tiny/1% right-sided pneumothorax. Minimal right pleural effusion. 5. ET tube and NG tube in place. Nonstandard communication protocol initiated. Electronically Signed: Carlo Collier MD at 1:06 EDT , ADDENDUM: 12/22/22 0120 IMPRESSION: 1. Negative for PE. 2. No thoracic aortic dissection. 3. Extensive bilateral pulmonary infiltrates, left greater than right, most likely pulmonary edema though superimposed pneumonia could also be present. 4. Acute lateral right rib fractures with a tiny/1% right-sided pneumothorax. Minimal right pleural effusion. 5. ET tube and NG tube in place. Nonstandard communication protocol initiated. N.B. : The above Results were Read Back by Carlo Collier MD to Deyanira Garcia RN, and understanding confirmed on 12/22/2022 01:13:17 (ET). Electronically Signed: Carlo Collier MD at 1:06 EDT , KUB X-Ray 12/22/22 00:49 IMPRESSION: 1. Satisfactory OG tube positioning. 2. Worsening consolidation within the left lower lobe. Electronically Signed: Carlo Collier MD at 2:23 EDT , Physical Exam Narrative General: Intubated and sedated HEENT: Atraumatic, normocephalic Eyes: Eyes closed, no spontaneous opening Neck: Supple Respiratory: Mechanically ventilated Cardiovascular: Regular rate and rhythm GI: Soft, nontender, nondistended Musculoskeletal: Presently sedated and not moving extremities spontaneously Neuro: Unable to participate in neuro exam secondary to intubated and sedated Skin: No rashes appreciated Psych: Unable to cooperate secondary to intubated and sedated Assessment & Plan Assessment/Plan (1) Pneumonia: QUALIFIERS: Aspiration pneumonia type: due to gastric secretions Laterality: bilateral Lung location: unspecified part of lung Pneumonia type: aspiration pneumonia Qualified Code(s): J69.0 - Pneumonitis due to inhalation of food and vomit (2) Cardiopulmonary arrest with successful resuscitation: (3) Septic shock: PLAN: Plan #Cardiac arrest with ROSC -Patient presented as an out of hospital cardiac arrest, has been started CPR prior to arrival and was continued by EMS and EMS was able to get ROSC, patient intubated in the emergency department and work-up obtained -Intubated and admitted to ICU -CT head without any bleeding or acute pathology -CTA with 1% minimal right-sided pneumothorax and pulmonary edema versus pneumonia with infiltrates -Troponin and lactic acid elevated, unclear primary or secondary at this time however lactic acid downtrending with supportive care -Suspicion for underlying infection/sepsis -Broad-spectrum antibiotics -Fluids -Patient on heparin drip -Echocardiogram ordered #Concern for sepsis from possible pneumonia. -Patient presented and had left shift on CBC in ED, creatinine was 1.43 without known baseline however today decreased to 1.05 so suspect YASH when patient presented with additional lactic acid of 8.9 and elevated liver enzymes, white blood cell count increased to 15.3 today could be reactive -Lactic acid downtrending -CT with concern for pulmonary edema versus pneumonia -Patient given fluids and BP responded -On broad-spectrum antibiotics -Panculture, blood cultures and urine cultures pending -RSV, COVID, flu negative, urine antigens negative #Elevated troponin -Initial troponin was 85. Trended to 10,605, further up trended to 25,000 -Cannot rule out NSTEMI however could be secondary to cardiac arrest and chest compressions and defibrillation -Cardiology on-call recommended starting beta-vu blood pressure tolerated so this has been started, patient on aspirin, patient on heparin drip and cardiology consulted #Transaminitis -Suspect shock liver secondary to cardiac arrest and CPR versus underlying sepsis though suspect the former, continue to trend #Hypokalemia -We will order further replacement DVT prophylaxis On heparin drip for elevated troponin. Time spent in the patient's overall evaluation,decision-making process, review of diagnostic data, adjustment of management, discussion with other providers, nursing nursing and ancillary staff involved in patient's care documentation, 51 minutes. Charges/Coding Visit Charges Inpatient E&M: 91743 Subs Hosp L3
--- NOTE | 2022-12-22 07:31 | CON.PCM.CC_ITS ---
Assessment & Plan Assessment/Plan (1) Cardiopulmonary arrest with successful resuscitation: PLAN: Plan RECOMMENDATIONS: 1. Minimize sedation for neurochecks 2. Continue empiric antibiotics for now 3. Wean oxygen as tolerated. Spontaneous breathing and awakening trials per protocol 4. Attempt normothermia 5. Continue heparin drip. Await echocardiogram IMPRESSIONS: 1. Cardiopulmonary arrest secondary to ventricular fibrillation with ROSC Unclear downtime. Appears to be between 5 and 10 minutes of downtime at a minimum. Patient is currently sedated to allow for ventilator synchrony. We will attempt to minimize sedation for neurochecks. We will attempt to keep normothermic given the most recent data. Patient is on a heparin drip at this time. Echocardiogram has been ordered. Patient does have a substantial elevation of troponin. It is unclear if patient had an NSTEMI leading to V-fib versus a result of the cardiopulmonary arrest. Patient did have significant lactic acidosis on presentation, but this appears to be improving. 2. Acute respiratory failure Patient with infiltrates, it is unclear if this is secondary to pulmonary contusion versus pneumonia. Patient is on empiric antibiotics at this time. Patient does not have significant wheezing to suggest asthma as an etiology. Patient does have a rib fracture, likely secondary to CPR. Patient reportedly h as a very small pneumothorax, but does not have any tension physiology at this time. Patient should have a chest x-ray with any hemodynamic changes. 3. Possible anoxic brain injury Unclear downtime at this time. Patient did receive epinephrine x2 along with a cardioversion for V-fib arrest. Patient reportedly was posturing initially, but is too sedated to evaluate at this time. We will attempt to decrease sedation and evaluate neuro status. Patient is currently a full code. Will discuss with family about goals of therapy. 4. Asthma/GERD/CAMILO Complicates care, management, recovery and prognosis. We will need to get patient's home CPAP settings at extubation, but patient currently intubated. Patient does not appear to be in acute asthma exacerbation at this time clinically. Pepcid is likely sufficient for GI prophylaxis and GERD. Likely initiate tube feeds today. TIME: 45 minutes critical care time spent addressing patient's cardiopulmonary arrest, acute respiratory failure, possible anoxic brain injury, review of all data and collaboration with care team HPI Consult Data Date of Consult: 12/22/22 HPI Narrative Reason for Consultation: Cardiac arrest HPI Narrative: ALYSHA MCMULLEN is a 67 F, with past medical history listed below, who presents to [facility] 12/21/2022 after sudden cardiac arrest. Patient was reportedly outside with her and became unresponsive. Patient reportedly had rapid CPR by her and 911 was called. EMS did report ROSC. EMS had noted ventricular fibrillation and defibrillation was initiated. Patient did receive 2 doses of epinephrine and a dose of sodium bicarbonate. In the ER, patient was afebrile and tachycardic at 130 bpm. Patient was saturating 100% with bag mask ventilation, but was immediately intubated for airway protection. Laboratory data showed a white blood cell count of 6.8, hemoglobin of 13.2 and platelet count of 190. Coagulation studies were within normal limits. Chemistry showed a potassium of 3.2, creatinine of 1.4 and glucose of 265. Lactate was elevated at 8.9 and there was a slight increase in liver enzymes. UA was relatively unremarkable except for some glucosuria. An ABG showed acute metabolic acidosis with minimal respiratory compensation and increased AA gradient. CT of the head was unremarkable and a chest x-ray showed interstitial thickening with infiltrates. Patient was initiated on empiric antibiotics following a sputum culture. Patient currently is intubated and sedated. Patient reportedly had posturing previously with discontinuation of propofol. Patient does remain on a heparin drip, along with Vanco and Zosyn. Patient has not had any significant ectopy noted. Patient is not able to provide a review of systems secondary to hemodynamic status. [facility] Medical History Asthma GERD (gastroesophageal reflux disease) Obstructive sleep apnea Allergy/AdvReac Type Severity Reaction Status Date / Time Unable to Assess Allergy Verified 12/21/22 17:05 Family History Other CVA (cerebral vascular accident) Diabetes Heart disease Surgical History H/O section Surgical History unable to obtain Social History Smoking Status: Never smoker ROS Review of Systems ROS Unobtainable: due to mental status Physical Exam Const Constitutional Narrative: RASS -4. Good vent synchrony. Appears stated age. General Appearance: patient mechanically ventilated HEENT normocephalic, head/scalp atraumatic and moist oral mucous membranes Eyes conjunctivae normal and no scleral icterus Neck no lymphadenopathy, supple and no JVD Chest inspection of chest normal Resp normal respiratory effort Auscultation: Negative for rales, rhonchi or wheezes Cardio regular rate, regular rhythm, S1 normal heart sound, S2 normal heart sound, no murmurs, no rub and no gallops GI normal to inspection, nondistended, normoactive bowel sounds Extremity no clubbing, cyanosis or edema Neuro Neuro Narrative: Patient does have a cough gag, corneal and pupillary reflex. Additional exam limited secondary to sedation Psych Mood & Affect: flat affect Medical Records Data Attestation: I reviewed the patient's medical records Lab / Micro Data Attestation: I reviewed the patient's lab results. 12/22/22 03:20 12/22/22 03:20 Labs: Laboratory Results - last 24 hr 12/21/22 17:00: WBC 6.8, RBC 4.49, Hgb 13.2, Hct 41.2, MCV 91.8, MCH 29.4, MCHC 32.0, RDW Std Deviation 43.4, RDW Coeff of Suzette 12.9, Plt Count 190, MPV 12.0, Immature Gran % (Auto) 2.900 H, Neut % (Auto) 6.5 L, Lymph % (Auto) 83.8 H, [place] % (Auto) 4.4, Eos % (Auto) 1.2, Baso % (Auto) 1.2 H, Absolute Neuts (auto) 0.5 L , Absolute Lymphs (auto) 5.73 H, Nucleated RBC % 0.6, Differential Comment SEE COMMENTS, Diff Path Review May foll, Atypical Lymphocytes 1+, Platelet Estimate ADEQUATE, RBC Morphology N CHROM, Anisocytosis RARE, Macrocytosis RARE, PT 16.5 H, INR 1.3, APTT 41.1 H, Sodium 144, Potassium 3.2 L, Chloride 107, Carbon Diox joel 21.0, Anion Gap 16 H, BUN 18, Creatinine 1.43 H, Estim Creat Clear Calc 36.72, Est GFR (MDRD) Af Amer 47 L, Est GFR (MDRD) Non-Af 39 L, BUN/Creatinine Ratio 12.6, Glucose 265 H, Lactic Acid 8.9 H*, Calcium 8.3 L, Total Bilirubin 0.20, AST 385 H, ALT 392 H, Alkaline Phosphatase 133 H, Total Creatine Kinase 144, Troponin I High Sens 85 H, Total Protein 6.1 L, Albumin 3.0 L, Globulin 3.1, Albumin/Globulin Ratio 1.0, Triglycerides 184 12/21/22 17:25: Urine Color Yellow, Urine Clarity Sl. Cloudy, Urine pH 6.5, Ur Specific [place] 1.015, Urine Protein 500 H, Urine Glucose (UA) 100 H, Urine Ketones 5 H, Urine Occult Blood 250 H, Urine Nitrite Negative, Urine Bilirubin Negative, Urine Urobilinogen Normal, Ur Leukocyte Esterase Negative, Urine RBC 50-100 SEEN, Urine WBC 0-5 SEEN, Ur Squamous Epith Cells 0-5 SEEN, Urine Bacteria 1+, Hyaline Casts 0-5 SEEN, Urine Mucus 0 SEEN 12/21/22 19:56: Magnesium 2.0, Troponin I High Sens 00969 H* 12/21/22 23:15: Total Creatine Kinase 1904 H, Troponin I High Sens 79158 H*, Triglycerides 91 12/22/22 03:20: WBC 15.3 H, RBC 4.71, Hgb 13.9, Hct 41.7, MCV 88.5, MCH 29.5, MCHC 33.3, RDW Std Deviation 43.2, RDW Coeff of Suzette 13.2, Plt Count 214, MPV 10.9, Immature Gran % (Auto) 0.300, Neut % (Auto) 89.0 H, Lymph % (Auto) 4.7 L, [place] % (Auto) 5.8, Eos % (Auto) 0.0, Baso % (Auto) 0.2, Absolute Neuts (auto) 13.6 H, Absolute Lymphs (auto) 0.72 L, Nucleated RBC % 0, Sodium 146 H, Potassium 3.3 L, Chloride 114 H, Carbon Dioxide 24.0, Anion Gap 8, BUN 14, Creatinine 1.05 H, Estim Creat Clear Calc 50.00, Est GFR (MDRD) Af Amer 68, Est GFR (MDRD) Non-Af 56 L, BUN/Creatinine Ratio 13.3, Glucose 177 H, Lactic Acid 4.0 H*, Calcium 7.7 L, Total Bilirubin 0.50, AST 480 H, ALT 380 H, Alkaline Phosphatase 112, Total Protein 6.4, Albumin 3.1 L, Globulin 3.3, Albumin/Globulin Ratio 0.9 12/22/22 05:20: APTT > 200.0 H* Micro: Microbiology 12/21/22 17:25 Urine Catheter - Villatoro Legionella Antigen - Final 12/21/22 17:25 Urine Catheter - Villatoro Streptococcus pneumoniae Antigen (M - Final 12/21/22 17:11 Mucosa - Nasopharyngeal Rapid RSV (DFA) - Final 12/21/22 17:05 Nasal Secretion SARS-CoV-2 & FLU Antigen (Rapid) - Final ABG Data ABG results: ABG 12/21/22 12/22/22 17:32 01:01 Specimen Type ART ART Sample Site R Radial R Radial pH 7.27 L 7.35 Bicarbonate Actual 17.9 L 20.2 L Total CO2 19 21 Base Excess -9 L -5 L O2 Saturation 98 92 L O2 % 70.0 50.0 ABG pCO2 38.9 36.9 ABG pO2 113 H 68 L Bello Test Positive Positive Respiration Rate 14 14 O2 Delivery Device Adult Vent Adult Vent Vent Mode AC AC Tidal Volume 400.0 400.0 POC PEEP 5 5 Attestation: I personally reviewed and interpreted this ABG as follows: (See HP I) Radiology Impression Brain CT 12/21/22 17:02 IMPRESSION: Negative head/brain CT without intravenous contrast. Electronically Signed: Cesar Knott MD at 18:27 EDT , Chest X-Ray 12/21/22 17:27 IMPRESSION: Interstitial thickening and infiltrates in the left lung. Mild right perihilar opacity. Electronically Signed: Ministerio Garcia DO at 17:41 EDT , Chest CTA 12/21/22 21:04 IMPRESSION: 1. Negative for PE. 2. No thoracic aortic dissection. 3. Extensive bilateral pulmonary infiltrates, left greater than right, most likely pulmonary edema though superimposed pneumonia could also be present. 4. Acute lateral right rib fractures with a tiny/1% right-sided pneumothorax. Minimal right pleural effusion. 5. ET tube and NG tube in place. Nonstandard communication protocol initiated. Electronically Signed: Carlo Collier MD at 1:06 EDT , ADDENDUM: 12/22/22 0120 IMPRESSION: 1. Negative for PE. 2. No thoracic aortic dissection. 3. Extensive bilateral pulmonary infiltrates, left greater than right, most likely pulmonary edema though superimposed pneumonia could also be present. 4. Acute lateral right rib fractures with a tiny/1% right-sided pneumothorax. Minimal right pleural effusion. 5. ET tube and NG tube in place. Nonstandard communication protocol initiated. N.B. : The above Results were Read Back by Carlo Collier MD to Deyanira Garcia RN, and understanding confirmed on 12/22/2022 01:13:17 (ET). Electronically Signed: Carlo Collier MD at 1:06 EDT , KUB X-Ray 12/22/22 00:49 IMPRESSION: 1. Satisfactory OG tube positioning. 2. Worsening consolidation within the left lower lobe. Electronically Signed: Carlo Collier MD at 2:23 EDT , Charges/Coding Procedures Hospitalists Procedures: [id number] Critial Care 1st Hr
[2022-12-22] MEDS: Vancomycin IV 500 MG/100 ML BAG 100 MG IV ×2 (07:44→19:54)
[2022-12-22] MEDS: 0.9% Saline Lock 10 ML Syringe IV ×2 (07:44→19:54)
[2022-12-22] MEDS: Aspirin 81 MG TAB.CHEW GT (08:54)
[2022-12-22] MEDS: Potassium Chloride 10mEq/100mL 10 MEQ/100 ML IV.SOLN. 100 MEQ IV BOLUS ×2 (08:54→09:56)
[2022-12-22] MEDS: Metoprolol Tartrate 25 MG Tablet 12.5 MG GT (08:55)
--- NOTE | 2022-12-22 10:20 | CASEMGMT ---
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 Family voices understanding and consents to?assessment?at this time.? Pt intubated. Care providers, pharmacy, and demographics verified/updated at this time. PCP: Dr Chris Mallory Specialists: family does not think pt currently sees specialist Preferred Pharmacy: [facility] Insurance: [facility] Prescription Benefit:?Yes Living Will/HPOA:? thinks pt has completed these and thinks he is HCPOA and then one of the daughters, if not both are alternatives. He is not sure. LNOK: , Manuel. 2 daughters: Bc Living Arrangements: Lives w/her in ranch-style home. No difficulty w/stairs. Independent and active. Transportation:?both pt and drive. DME: ?Pt uses no DME HHC/SNF: No hx of either. CM?to follow for discharge planning/needs.?Advised family to ask for?CM?if any further questions/concerns/needs arise.? They voice understanding. PLAN:??TBD by pt's progress James RAMÍREZN?RN?CM
[2022-12-22] MEDS: Acetaminophen 650 MG/20 ML UDC PO ×2 (12:34→21:14)
[2022-12-22] MEDS: Vital AF 1.2 Cal Liquid 1,000 ML 20 ML GT (12:34)
--- NOTE | 2022-12-22 12:39 | CASEMGMT ---
[facility] as follows:. [facility], [facility], [facility], [facility]), and . Adali Austin, Discharge Planning Asst.
[2022-12-22] MEDS: fentaNYL drip 100 ML 5 MCG CONT INF (12:40)
--- NOTE | 2022-12-22 13:32 | PCM.CONS.C ---
Assessment & Plan Assessment/Plan (1) Cardiopulmonary arrest with successful resuscitation: PLAN: Patient is status post ventricular fibrillation arrest. Successfully defibrillated. Of greater concern would be recovery of her neurological status. If she has no significant anoxic brain injury, then she would need coronary angiography during this hospitalization. (2) NSTEMI (non-ST elevated myocardial infarction): PLAN: See #1 above. Continue aspirin. For coronary angiography if neurological recovery occurs. (3) Pneumonia: QUALIFIERS: Pneumonia type: aspiration pneumonia Aspiration pneumonia type: due to gastric secretions Laterality: bilateral Lung location: unspecified part of lung Qualified Code(s): J69.0 - Pneumonitis due to inhalation of food and vomit PLAN: On Zosyn. HPI Consult Data Date of Consult: 12/22/22 HPI Narrative Reason for Consultation: Cardiac arrest HPI Narrative: This patient has no significant past medical history listed. She was at her home when she suddenly passed out. Witnessed by her . CPR was started by the . EMS was called. Per EMS records, she had ventricular fibrillation. She was successfully defibrillated. Intubated in the field and brought to the emergency room. Presently she remains intubated. She had a CT scan of her chest done. It was negative for PE. Extensive bilateral infiltrates were noted. She is febrile here in the intensive care unit and being treated for possible aspiration pneumonia and sepsis. [facility] Medical History Asthma GERD (gastroesophageal reflux disease) Obstructive sleep apnea Allergy/AdvReac Type Severity Reaction Status Date / Time Unable to Assess Allergy Verified 12/21/22 17:05 Family History Other CVA (cerebral vascular accident) Diabetes Heart disease Surgical History H/O section Surgical History unable to obtain Social History Smoking Status: Never smoker Physical Exam Narrative Intubated on the ventilator. Heart sounds 1 and 2 noted. No murmurs noted. No wheezing noted on chest examination. No ankle edema noted. Risk Stratification Risk Stratification Applicable: No Objective Data Vital Signs: Vital Signs Temp Pulse Resp BP Pulse Ox O2 Del Method FiO2 100.4 F H 87 14 113/65 98 Mechanical Ventilator 30 12/22/22 13:00 12/22/22 13:00 12/22/22 13:00 12/22/22 13:00 12/22/22 13:00 12/22/22 13:00 12/22/22 13:00 Oxygen Delivery Method Mechanical Ventilator Weight: 130 lb 11.746 oz Body Mass Index (BMI) 22.0 Intake & Output: Intake and Output for Last 24 Hours 12/20/22 12/21/22 12/22/22 23:59 23:59 23:59 Intake Total 3703.86 / 3718.16 1672.33 / 1672.33 Output Total 2024 / 2024 Balance 3703.86 / 2618.16 -352.67 / -352.67 Lab / Micro Data 12/22/22 03:20 12/22/22 03:20 Labs: Laboratory Results - last 24 hr 12/21/22 17:00: WBC 6.8, RBC 4.49, Hgb 13.2, Hct 41.2, MCV 91.8, MCH 29.4, MCHC 32.0, RDW Std Deviation 43.4, RDW Coeff of Suzette 12.9, Plt Count 190, MPV 12.0, Immature Gran % (Auto) 2.900 H, Neut % (Auto) 6.5 L, Lymph % (Auto) 83.8 H, Crane % (Auto) 4.4, Eos % (Auto) 1.2, Baso % (Auto) 1.2 H, Absolute Neuts (auto) 0.5 L, Absolute Lymphs (auto) 5.73 H, Nucleated RBC % 0.6, Differential Comment SEE COMMENTS, Diff Path Review May foll, Atypical Lymphocytes 1+, Platelet Estimate ADEQUATE, RBC Morphology N CHROM, Anisocytosis RARE, Macrocytosis RARE, PT 16.5 H, INR 1.3, APTT 41.1 H, Sodium 144, Potassium 3.2 L, Chloride 107, Carbon Dioxide 21.0, Anion Gap 16 H, BUN 18, Creatinine 1.43 H, Estim Creat Clear Calc 36.72, Est GFR (MDRD) Af Amer 47 L, Est GFR (MDRD) Non-Af 39 L, BUN/Creatinine Ratio 12.6, Glucose 265 H, Lactic Acid 8.9 H*, Calcium 8.3 L, Total Bilirubin 0.20, AST 385 H, ALT 392 H, Alkaline Phosphatase 133 H, Total Creatine Kinase 144, Troponin I High Sens 85 H, Total Protein 6.1 L, Albumin 3.0 L, Globulin 3.1, Albumin/Globulin Ratio 1.0, Triglycerides 184 12/21/22 17:25: Urine Color Yellow, Urine Clarity Sl. Cloudy, Urine pH 6.5, Ur Specific [place] 1.015, Urine Protein 500 H, Urine Glucose (UA) 100 H, Urine Ketones 5 H, Urine Occult Blood 250 H, Urine Nitrite Negative, Urine Bilirubin Negative, Urine Urobilinogen Normal, Ur Leukocyte Esterase Negative, Urine RBC 50-100 SEEN, Urine WBC 0-5 SEEN, Ur Squamous Epith Cells 0-5 SEEN, Urine Bacteria 1+, Hyaline Casts 0-5 SEEN, Urine Mucus 0 SEEN 12/21/22 19:56: Magnesium 2.0, Troponin I High Sens 25722 H* 12/21/22 23:15: Total Creatine Kinase 1904 H, Troponin I High Sens 47612 H*, Triglycerides 91 12/22/22 03:20: WBC 15.3 H, RBC 4.71, Hgb 13.9, Hct 41.7, MCV 88.5, MCH 29.5, MCHC 33.3, RDW Std Deviation 43.2, RDW Coeff of Suzette 13.2, Plt Count 214, MPV 10.9, Immature Gran % (Auto) 0.300, Neut % (Auto) 89.0 H, Lymph % (Auto) 4.7 L, Crane % (Auto) 5.8, Eos % (Auto) 0.0, Baso % (Auto) 0.2, Absolute Neuts (auto) 13.6 H, Absolute Lymphs (auto) 0.72 L, Nucleated RBC % 0, Sodium 146 H, Potassium 3.3 L, Chloride 114 H, Carbon Dioxide 24.0, Anion Gap 8, BUN 14, Creatinine 1.05 H, Estim Creat Clear Calc 50.00, Est GFR (MDRD) Af Amer 68, Est GFR (MDRD) Non-Af 56 L, BUN/Creatinine Ratio 13.3, Glucose 177 H, Lactic Acid 4.0 H*, Calcium 7.7 L, Total Bilirubin 0.50, AST 480 H, ALT 380 H, Alkaline Phosphatase 112, Total Protein 6.4, Albumin 3.1 L, Globulin 3.3, Albumin/Globulin Ratio 0.9 12/22/22 05:20: APTT > 200.0 H* Micro: Microbiology 12/21/22 17:25 Urine Catheter - Villatoro Urine Culture - Preliminary Culture exhibits no growth. 12/21/22 17:25 Urine Catheter - Villatoro Legionella Antigen - Final 12/21/22 17:25 Urine Catheter - Villatoro Streptococcus pneumoniae Antigen (M - Final 12/21/22 17:11 Mucosa - Nasopharyngeal Rapid RSV (DFA) - Final 12/21/22 17:05 Nasal Secretion SARS-CoV-2 & FLU Antigen (Rapid) - Final ABG Data ABG results: ABG 12/21/22 12/22/22 17:32 01:01 Specimen Type ART ART Sample Site R Radial R Radial pH 7.27 L 7.35 Bicarbonate Actual 17.9 L 20.2 L Total CO2 19 21 Base Excess -9 L -5 L O2 Saturation 98 92 L O2 % 70.0 50.0 ABG pCO2 38.9 36.9 ABG pO2 113 H 68 L Bello Test Positive Positive Respiration Rate 14 14 O2 Delivery Device Adult Vent Adult Vent Vent Mode AC AC Tidal Volume 400.0 400.0 POC PEEP 5 5 Rhythm Strip Rhythm Strip: Sinus Rhythm Cardiology Labs/Tests 12/21/22 17:00: WBC 6.8, RBC 4.49, Hgb 13.2, Hct 41.2, MCV 91.8, MCH 29.4, MCHC 32.0, Plt Count 190, MPV 12.0, Immature Gran % (Auto) 2.900 H, Neut % (Auto) 6.5 L, Lymph % (Auto) 83.8 H, Crane % (Auto) 4.4, Eos % (Auto) 1.2, Baso % (Auto) 1.2 H, Absolute Neuts (auto) 0.5 L, Nucleated RBC % 0.6, PT 16.5 H, INR 1.3, APTT 41.1 H, Sodium 144, Potassium 3.2 L, Chloride 107, Carbon Dioxide 21.0, Anion Gap 16 H, BUN 18, Creatinine 1.43 H, Est GFR (MDRD) Af Amer 47 L, Est GFR (MDRD) Non-Af 39 L, BUN/Creatinine Ratio 12.6, Glucose 265 H, Lactic Acid 8.9 H*, Calcium 8.3 L, Total Bilirubin 0.20, Triglycerides 184 12/21/22 17:25: Urine Color Yellow, Urine Clarity Sl. Cloudy, Urine pH 6.5, Ur Specific [place] 1.015, Urine Protein 500 H, Urine Glucose (UA) 100 H, Urine Ketones 5 H, Urine Occult Blood 250 H, Urine Nitrite Negative, Urine Bilirubin Negative, Urine Urobilinogen Normal, Ur Leukocyte Esterase Negative, Urine RBC 50-100 SEEN, Urine WBC 0-5 SEEN 12/21/22 17:32: pH 7.27 L, Bicarbonate Actual 17.9 L, Base Excess -9 L, O2 Saturation 98, ABG pCO2 38.9, ABG pO2 113 H, Bello Test Positive 12/21/22 19:56: Magnesium 2.0 12/21/22 23:15: Triglycerides 91 12/22/22 01:01: pH 7.35, Bicarbonate Actual 20.2 L, Base Excess -5 L, O2 Saturation 92 L, ABG pCO2 36.9, ABG pO2 68 L, Bello Test Positive 12/22/22 03:20: WBC 15.3 H, RBC 4.71, Hgb 13.9, Hct 41.7, MCV 88.5, MCH 29.5, MCHC 33.3, Plt Count 214, MPV 10.9, Immature Gran % (Auto) 0.300, Neut % (Auto) 89.0 H, Lymph % (Auto) 4.7 L, Crane % (Auto) 5.8, Eos % (Auto) 0.0, Baso % (Auto) 0.2, Absolute Neuts (auto) 13.6 H, Nucleated RBC % 0, Sodium 146 H, Potassium 3.3 L, Chloride 114 H, Carbon Dioxide 24.0, Anion Gap 8, BUN 14, Creatinine 1.05 H, Est GFR (MDRD) Af Amer 68, Est GFR (MDRD) Non-Af 56 L, BUN/Creatinine Ratio 13.3, Glucose 177 H, Lactic Acid 4.0 H*, Calcium 7.7 L, Total Bilirubin 0.50 12/22/22 05:20: APTT > 200.0 H* Rhythm: EKG: ECG done in the emergency room showed ST depressions that might denote ischemia. ECHO: Overall normal left ventricular systolic function. Stress Test: Cardiac Cath: PCI: CT Surgery: Holter monitor: EPS: PPM: CXR: Chest CT Scan: Radiography Diagnostic Testing: Radiology Impression Brain CT 12/21/22 17:02 IMPRESSION: Negative head/brain CT without intravenous contrast. Electronically Signed: Cesar Knott MD at 18:27 EDT , Chest X-Ray 12/21/22 17:27 IMPRESSION: Interstitial thickening and infiltrates in the left lung. Mild right perihilar opacity. Electronically Signed: Ministerio Garcia DO at 17:41 EDT , Chest CTA 12/21/22 21:04 IMPRESSION: 1. Negative for PE. 2. No thoracic aortic dissection. 3. Extensive bilateral pulmonary infiltrates, left greater than right, most likely pulmonary edema though superimposed pneumonia could also be present. 4. Acute lateral right rib fractures with a tiny/1% right-sided pneumothorax. Minimal right pleural effusion. 5. ET tube and NG tube in place. Nonstandard communication protocol initiated. Electronically Signed: Carlo Collier MD at 1:06 EDT , ADDENDUM: 12/22/22 0120 IMPRESSION: 1. Negative for PE. 2. No thoracic aortic dissection. 3. Extensive bilateral pulmonary infiltrates, left greater than right, most likely pulmonary edema though superimposed pneumonia could also be present. 4. Acute lateral right rib fractures with a tiny/1% right-sided pneumothorax. Minimal right pleural effusion. 5. ET tube and NG tube in place. Nonstandard communication protocol initiated. N.B. : The above Results were Read Back by Carlo Collier MD to Deyanira Garcia RN, and understanding confirmed on 12/22/2022 01:13:17 (ET). Electronically Signed: Carlo Collier MD at 1:06 EDT , KUB X-Ray 12/22/22 00:49 IMPRESSION: 1. Satisfactory OG tube positioning. 2. Worsening consolidation within the left lower lobe. Electronically Signed: Carlo Collier MD at 2:23 EDT , Echocardiogram 12/22/22 05:55 Interpretation Summary The left ventricular ejection fraction is 55 %. Mild apical hypokinesis Mildly dilated right ventricle. Ordering Physician: Jt Dunaway Referring Physician: ILENE JIMENEZ Performed By: Stephanie Tobni RCS
[2022-12-22 14:17] LABS: Pathologist Review Reviewed
--- NOTE | 2022-12-22 14:18 | CHAPLAIN ---
Type of Pastoral Visit _x__ Initial Visit ___ Follow-up Visit ___ On-call Visit ___ General Patient Visit ___ Spiritual Assessment ___ Family Conference ___ Bereavement ___ Rapid Response ___ Code Blue ___ Other (describe below) Pastoral Care Referral From ___ Patient _x__ Family _x_ Nurse ___ Physician ___ Ballistician ___ Electronic Pagination System Operator ___ Other (describe below) Sacrament/Intervention _x__ Active listening ___ Anointing ___ Mandaeism ___ Bereavement ___ Communion _x__ Yris exploration ___ _x__ Life review _x__ Prayer ___ Reconciliation ___ Sacrament of Sick _x__ Supportive presence ___ Wedding ___ Other (describe below) Pastoral Comments patient is unresponsive and on the vent; spouse and one daughter are in the room; offer of presence and support; spouse does not say much but to respond to questions; daughter is more interactive and describes how very active the pt was up until the time of the heart attack; family is somewhat in disbelief at the event; gave time to listen, and offer of needs being addressed and presence given; prayer is welcomed; pt is active in her tenriism; family looks to their yris in God; son-in-law is the mincemeat maker of their tenriism so 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
[2022-12-22 14:38] LABS: Partial Thromboplast Time 33.8 Seconds (24.1-36.2)
[2022-12-22] MEDS: Piperacil/Tazobactam 3.375 GM in 0.9% Normal Saline (50mL MB+) 50 ML IV ×2 (14:55→21:13)
[2022-12-22] MEDS: Heparin Injection (Vial) 5,000 UNIT/ML VIAL IV (14:56)
[2022-12-22] MEDS: 0.9% Normal Saline (250mL Bag) 250 ML 15 ML IV (19:54)
[2022-12-22 21:31] LABS: Partial Thromboplast Time 73.7 Seconds (24.1-36.2)
--- NOTE | 2022-12-22 22:45 | NURSING ---
Pt has been responsive to only painful stimuli since last evening. Propofol since being held d/t not needing in order to tolerate vent.
[2022-12-23] VITALS (33 sets, daily range): BP systolic 94–156; BP diastolic 58–95; PULSE 83–128; RESP 14–24; TEMP 36.9–37.8; O2SAT 92–100; BMI 22.6
[2022-12-23] MEDS: 0.9% Normal Saline (1000mL) 1,000 ML 75 ML IV (02:16)
[2022-12-23 03:24] LABS: Absolute Lymphocyte Count 1.25 X10^3/uL (0.83-4.51); Absolute Neutrophil Count 11.7 X10^3/uL (2.0-7.7); Basophil# 0.06 X10^3/uL; Basophil% 0.4 % (0-1); Eosinophil# 0.03 X10^3/uL; Eosinophils% 0.2 % (0-5); Hemoglobin 11.9 g/dL (12.0-15.0); Lymphocyte # 1.25 X10^3/ul (0.83-4.51); Mean Corp Hgb Conc 32.2 g/dL (32-36); Mean Corpuscular Hgb 28.7 pg (27.0-32.0); Mean Corpuscular Volume 89.4 fL (81-99); Mean Platelet Vol. 11.3 fl (6.2-12.0); Monocyte# 0.84 X10^3/uL; NRBC Flagged by Analyzer 0 % (0-5); Neutrophil % 83.8 % (47-70); Platelet Count 182 K/mm3 (150-450); RBC Distribution Width CV 13.6 % (11.6-14.6); RBC Distribution Width SD 44.5 fl (35.1-43.9); Red Blood Count 4.14 M/mm3 (4.2-5.4)
[2022-12-23 03:36] LABS: Partial Thromboplast Time 53.4 Seconds (24.1-36.2)
[2022-12-23 03:41] LABS: ALB/GLOB Ratio 0.8 RATIO (0.9-2.4); AST(SGOT) 198 U/L (15-37); Alanine Aminotransfer ALT/SGPT 245 U/L (13-56); Albumin, Serum 2.7 g/dL (3.2-5.0); Alkaline Phosphatase 109 U/L (45-117); Anion Gap 5 (5-15); BUN 9 mg/dL (7-18); BUN/Creat Ratio 11.1 RATIO (10-20); Calcium,Total 7.9 mg/dL (8.5-10.1); Chloride 111 mmol/L (98-107); Creatinine, Serum 0.81 mg/dL (0.55-1.02); EST Glomerular Filtration Rate 76 mL/min (>60); Est Glom Filt Rate - Afr Amer 91 mL/min (>60); Estimated Creatinine Clearance 64.82 ml/min; Globulin 3.3 g/dL (2.2-4.2); Glucose 146 mg/dL (74-106); Potassium 3.9 mmol/L (3.5-5.1); Sodium Level 139 mmol/L (136-145)
[2022-12-23 05:16] LABS: Vancomycin, Trough Level 10.3 ug/mL (5.0-15.0)
--- NOTE | 2022-12-23 06:08 | PCM.RX.CS ---
Consult Antibiotic Management Pharmacy has been consulted to manage selected antiobiotic: Vancomycin Type of Intervention Type of Consult: Follow-up Labs Labs: Sodium 139 mmol/L (136-145) 12/23/22 03:15 Potassium 3.9 mmol/L (3.5-5.1) 12/23/22 03:15 Chloride 111 mmol/L (98-107) H 12/23/22 03:15 Carbon Dioxide 23.0 mmol/L (21.0-32.0) 12/23/22 03:15 Anion Gap 5 (5-15) 12/23/22 03:15 BUN 9 mg/dL (7-18) 12/23/22 03:15 Creatinine 0.81 mg/dL (0.55-1.02) 12/23/22 03:15 Est GFR (MDRD) Af Amer 91 mL/min (>60) 12/23/22 03:15 Est GFR (MDRD) Non-Af 76 mL/min (>60) 12/23/22 03:15 BUN/Creatinine Ratio 11.1 RATIO (10-20) 12/23/22 03:15 Glucose 146 mg/dL (74-106) H 12/23/22 03:15 Vancomycin Trough 10.3 ug/mL (5.0-15.0) 12/23/22 04:30 Microbiology Microbiology: Microbiology 12/21/22 17:25 Urine Catheter - Villatoro Urine Culture - Preliminary Culture exhibits no growth. 12/21/22 17:25 Urine Catheter - Villatoro Legionella Antigen - Final 12/21/22 17:25 Urine Catheter - Villatoro Streptococcus pneumoniae Antigen (M - Final 12/21/22 17:11 Mucosa - Nasopharyngeal Rapid RSV (DFA) - Final 12/21/22 17:05 Nasal Secretion SARS-CoV-2 & FLU Antigen (Rapid) - Final Pharmacy Plan for Drug Dosing Pharmacy Plan for Drug Dosing: Pharmacy Service will continue to monitor and adjust dosing as required. TROUGH 10.6 @ 10.5 HOURS. INCREASE TO 750MG Q12H AND FOLLOW UP TROUGH PRIOR TO 4TH DOSE Follow-Up Labs Follow-Up Labs: Trough: Vancomycin Date/Time Labs Ordered Labs to be done on [date and time ordered]: 12/24 @ 1830
[2022-12-23] MEDS: Vancomycin Trough/Random Due 1 LAB MC (06:22)
[2022-12-23] MEDS: Piperacil/Tazobactam 3.375 GM in 0.9% Normal Saline (50mL MB+) 50 ML IV ×3 (06:32→20:43)
[2022-12-23] MEDS: Vancomycin HCl 750 MG in 0.9% Normal Saline (250mL Bag) 250 ML 250 MG IV ×2 (06:36→18:30)
--- NOTE | 2022-12-23 06:51 | PN.HOSP_ITS ---
Reason for Visit Reason for Visit: Diagnoses Sepsis, unspecified organism (12/21/22) Non-ST elevation (NSTEMI) myocardial infarction (12/21/22) Cardiac arrest, cause unspecified (12/21/22) Pneumonitis due to inhalation of food and vomit (12/21/22) Severe sepsis with septic shock (12/21/22) Subjective Subjective Remains intubated on fentanyl, had 2 episodes of emesis despite low residuals with tube feeds, tube feeds on hold and OG to suction Objective Data Objective Data Vital Signs: Vital Signs Temp Pulse Resp BP Pulse Ox O2 Del Method FiO2 100.0 F H 114 H 19 H 141/75 H 97 Mechanical Ventilator 30 12/23/22 06:00 12/23/22 06:00 12/23/22 06:00 12/23/22 06:00 12/23/22 06:00 12/23/22 06:00 12/23/22 06:00 Oxygen Delivery Method Mechanical Ventilator Weight: 63.8 kg Body Mass Index (BMI) 22.6 Intake & Output: Intake and Output for Last 24 Hours 12/21/22 12/22/22 12/23/22 23:59 23:59 23:59 Intake Total 3703.86 / 3718.16 2502.96 / 2607.96 1259.58 / 1259.58 Output Total 2375 / 2375 100 / 100 Balance 3703.86 / 2618.16 127.96 / 232.96 1159.58 / 1159.58 Lab / Micro Data 12/23/22 03:15 12/23/22 03:15 Labs: Laboratory Results - last 24 hr 12/21/22 17:00: Diff Path Review Reviewed 12/22/22 14:00: APTT 33.8 12/22/22 21:00: APTT 73.7 H 12/23/22 03:15: WBC 14.0 H, RBC 4.14 L, Hgb 11.9 L, Hct 37.0, MCV 89.4, MCH 28. 7, MCHC 32.2, RDW Std Deviation 44.5 H, RDW Coeff of Suzette 13.6, Plt Count 182, MPV 11.3, Immature Gran % (Auto) 0.600, Neut % (Auto) 83.8 H, Lymph % (Auto) 9.0 L, [place] % (Auto) 6.0, Eos % (Auto) 0.2, Baso % (Auto) 0.4, Absolute Neuts (auto) 11.7 H, Absolute Lymphs (auto) 1.25, Nucleated RBC % 0, APTT 53.4 H, Sodium 139, Potassium 3.9, Chloride 111 H, Carbon Dioxide 23.0, Anion Gap 5, BUN 9, Creatinine 0.81, Estim Creat Clear Calc 64.82, Est GFR (MDRD) Af Amer 91, Est GFR (MDRD) Non-Af 76, BUN/Creatinine Ratio 11.1, Glucose 146 H, Calcium 7.9 L, Total Bilirubin 0.60, AST 198 H, ALT 245 H, Alkaline Phosphatase 109, Total Protein 6.0 L, Albumin 2.7 L, Globulin 3.3, Albumin/Globulin Ratio 0.8 L 12/23/22 04:30: Vancomycin Trough 10.3 Micro: Microbiology 12/21/22 17:25 Urine Catheter - Villatoro Urine Culture - Preliminary Culture exhibits no growth. 12/21/22 17:25 Urine Catheter - Villatoro Legionella Antigen - Final 12/21/22 17:25 Urine Catheter - Villatoro Streptococcus pneumoniae Antigen (M - Final 12/21/22 17:11 Mucosa - Nasopharyngeal Rapid RSV (DFA) - Final 12/21/22 17:05 Nasal Secretion SARS-CoV-2 & FLU Antigen (Rapid) - Final Radiography Diagnostic Testing: Radiology Impression Echocardiogram 12/22/22 05:55 Interpretation Summary The left ventricular ejection fraction is 55 %. Mild apical hypokinesis Mildly dilated right ventricle. Ordering Physician: Jt Dunaway Referring Physician: ILENE JIMENEZ Performed By: Stephanie Tobin RCS Rhythm Strip Rhythm Strip: Sinus Rhythm Physical Exam Narrative General: Intubated and sedated HEENT: Atraumatic, normocephalic Eyes: Eyes closed, no spontaneous opening Neck: Supple Respiratory: Mechanically ventilated, no overt wheezes or rhonchi Cardiovascular: Sinus tach GI: Soft, nontender, nondistended Musculoskeletal: Presently sedated and not moving extremities spontaneously Neuro: Unable to participate in neuro exam secondary to intubated and sedated Skin: No rashes appreciated Psych: Unable to cooperate secondary to intubated and sedated Assessment & Plan Assessment/Plan (1) Pneumonia: QUALIFIERS: Aspiration pneumonia type: due to gastric secretions Laterality: bilateral Lung location: unspecified part of lung Pneumonia type: aspiration pneumonia Qualified Code(s): J69.0 - Pneumonitis due to inhalation of food and vomit (2) Cardiopulmonary arrest with successful resuscitation: (3) Septic shock: PLAN: Plan #Cardiac arrest with ROSC -Patient presented as an out of hospital cardiac arrest, has been started CPR prior to arrival and was continued by EMS and EMS was able to get ROSC, patient intubated in the emergency department and work-up obtained -Intubated and admitted to ICU -CT head without any bleeding or acute pathology -CTA with 1% minimal right-sided pneumothorax and pulmonary edema versus pneumonia with infiltrates -Troponin and lactic acid elevated, unclear primary or secondary at this time however lactic acid downtrending with supportive care -Suspicion for underlying infection/sepsis -Broad-spectrum antibiotics -Fluids -Patient on heparin drip -Echocardiogram ordered -12/23: Patient was spinal cord reflexes, continue to minimize sedation as possible and assess mental status, echocardiogram demonstrated EF 55% with mild apical hypokinesis and normal diastole for age, if patient improves neurologically cardiology recommended coronary angiography during this hospitalization, continue aspirin #Concern for sepsis from possible pneumonia. -Patient presented and had left shift on CBC in ED, creatinine was 1.43 without known baseline however today decreased to 1.05 so suspect YASH when patient presented with additional lactic acid of 8.9 and elevated liver enzymes, white blood cell count increased to 15.3 today could be reactive -Lactic acid downtrending -CT with concern for pulmonary edema versus pneumonia -Patient given fluids and BP responded -On broad-spectrum antibiotics -Panculture, blood cultures and urine cultures pending -RSV, COVID, flu negative, urine antigens negative -12/23: Do suspect aspiration, Tmax since yesterday 100.9, on antibiotics With Vanco and Zosyn, white blood cell count downtrending. Blood cultures pending, no sputum culture available, urine culture negative #Elevated troponin -Initial troponin was 85. Trended to 10,605, further up trended to 25,000 -Cannot rule out NSTEMI however could be secondary to cardiac arrest and chest compressions and defibrillation -Cardiology on-call recommended starting beta-vu blood pressure tolerated so this has been started, patient on aspirin, patient on heparin drip and cardiology consulted -12/23: As above #YASH -Patient had unclear baseline however creatinine 1.43 on presentation is down trended to 0.81 with supportive care suspect YASH on admission #Transaminitis -Suspect shock liver secondary to cardiac arrest and CPR versus underlying sepsis though suspect the former, continue to trend -12/23: Downtrending with supportive care #Hypokalemia -We will order further replacement DVT prophylaxis On heparin drip for elevated troponin. Time spent in the patient's overall evaluation,decision-making process, review of diagnostic data, adjustment of management, discussion with other providers, nursing nursing and ancillary staff involved in patient's care documentation, 37 minutes. Charges/Coding Visit Charges Inpatient E&M: 74887 Subs Hosp L2
--- NOTE | 2022-12-23 07:12 | PN.CC_ITS ---
Assessment & Plan Assessment/Plan (1) Cardiopulmonary arrest with successful resuscitation: PLAN: Plan RECOMMENDATIONS: 1. Minimize sedation for neurochecks 2. Continue empiric antibiotics until culture negative at 48 hours 3. Wean oxygen as tolerated. Spontaneous breathing and awakening trials per protocol 4. Attempt normothermia 5. Continue heparin drip. 6. Likely discuss prognosis in the next 24 to 48 hours with family if no improvement IMPRESSIONS: 1. Cardiopulmonary arrest secondary to ventricular fibrillation with ROSC Unclear downtime. Appears to be between 5 and 10 minutes of downtime at a minimum. Patient is currently not sedated to allow for neurochecks. We will attempt to keep normothermic given problem #3. Patient is on a heparin drip at this time. Echocardiogram does show some apical akinesis and RV dysfunction. Patient does have a substantial elevation of troponin. It is unclear if patient had an NSTEMI leading to V-fib versus a result of the cardiopulmonary arrest. Patient did have significant lactic acidosis on presentation, but this appears to be resolved. 2. Acute respiratory failure Patient with infiltrates, it is unclear if this is secondary to pulmonary contusion versus pneumonia. Patient is on empiric antibiotics at this time. Patient does not have significant wheezing to suggest asthma as an etiology. Patient does have a rib fracture, likely secondary to CPR. Patient reportedly has a very small pneumothorax, but does not have any tension physiology at this time. Patient should have a chest x-ray with any hemodynamic changes. 3. Possible anoxic brain injury Unclear downtime at this time. Patient did receive epinephrine x2 along with a cardioversion for V-fib arrest. Patient reportedly was posturing initially, but is too sedated to evaluate at this time. We will attempt to decrease sedation and evaluate neuro status. Patient is currently a full code. Will discuss with family about goals of therapy. 4. Asthma/GERD/CAMILO Complicates care, management, recovery and prognosis. We will need to get patient's home CPAP settings at extubation, but patient currently intubated. Patient does not appear to be in acute asthma exacerbation at this time clini summer. Pepcid is likely sufficient for GI prophylaxis and GERD. Likely initiate tube feeds today. TIME: 35 minutes critical care time spent addressing patient's cardiopulmonary arrest, acute respiratory failure, possible anoxic brain injury, review of all d megan and collaboration with care team Subjective Subjective Patient did okay overnight from a hemodynamic standpoint. Patient continues to have low-grade fever. Patient has been in sinus tach and tolerating tube feeds. Patient continues to have cranial nerve function and was able to tolerate spontaneous breathing this morning. Patient is not interactive despite discontinuation of propofol. No seizure activity has been reported by nursing. Objective Data Objective Data Vital Signs: Vital Signs Temp Pulse Resp BP Pulse Ox O2 Del Method FiO2 37.8 C H 99 14 141/75 H 99 Mechanical Ventilator 30 12/23/22 06:00 12/23/22 06:52 12/23/22 06:52 12/23/22 06:00 12/23/22 06:52 12/23/22 06:00 12/23/22 06:52 Oxygen Delivery Method Mechanical Ventilator Weight: 63.8 kg Body Mass Index (BMI) 22.6 Intake & Output: Intake and Output for Last 24 Hours 12/21/22 12/22/22 12/23/22 23:59 23:59 23:59 Intake Total 3703.86 / 3718.16 2502.96 / 2607.96 1259.58 / 1259.58 Output Total 2375 / 2375 100 / 100 Balance 3703.86 / 2618.16 127.96 / 232.96 1159.58 / 1159.58 Lab / Micro Data Attestation: I reviewed the patient's lab results. 12/23/22 03:15 12/23/22 03:15 Labs: Laboratory Results - last 24 hr 12/21/22 17:00: Diff Path Review Reviewed 12/22/22 14:00: APTT 33.8 12/22/22 21:00: APTT 73.7 H 12/23/22 03:15: WBC 14.0 H, RBC 4.14 L, Hgb 11.9 L, Hct 37.0, MCV 89.4, MCH 28.7, MCHC 32.2, RDW Std Deviation 44.5 H, RDW Coeff of Suzette 13.6, Plt Count 182, MPV 11.3, Immature Gran % (Auto) 0.600, Neut % (Auto) 83.8 H, Lymph % (Auto) 9.0 L, [place] % (Auto) 6.0, Eos % (Auto) 0.2, Baso % (Auto) 0.4, Absolute Neuts (auto) 11.7 H, Absolute Lymphs (auto) 1.25, Nucleated RBC % 0, APTT 53.4 H, Sodium 139, Potassium 3.9, Chloride 111 H, Carbon Dioxide 23.0, Anion Gap 5, BUN 9, Creatinine 0.81, Estim Creat Clear Calc 64.82, Est GFR (MDRD) Af Amer 91, Est GFR (MDRD) Non-Af 76, BUN/Creatinine Ratio 11.1, Glucose 146 H, Calcium 7.9 L, Total Bilirubin 0.60, AST 198 H, ALT 245 H, Alkaline Phosphatase 109, Total Protein 6.0 L, Albumin 2.7 L, Globulin 3.3, Albumin/Globulin Ratio 0.8 L 12/23/22 04:30: Vancomycin Trough 10.3 Micro: Microbiology 12/21/22 17:25 Urine Catheter - Villatoro Urine Culture - Preliminary Culture exhibits no growth. 12/21/22 17:25 Urine Catheter - Villatoro Legionella Antigen - Final 12/21/22 17:25 Urine Catheter - Villatoro Streptococcus pneumoniae Antigen (M - Final 12/21/22 17:11 Mucosa - Nasopharyngeal Rapid RSV (DFA) - Final 12/21/22 17:05 Nasal Secretion SARS-CoV-2 & FLU Antigen (Rapid) - Final Radiography Diagnostic Testing: Radiology Impression Echocardiogram 12/22/22 05:55 Interpretation Summary The left ventricular ejection fraction is 55 %. Mild apical hypokinesis Mildly dilated right ventricle. Ordering Physician: Jt Dunaway Referring Physician: ILENE JIMENEZ Performed By: Stephanie Tobin RCS Rhythm Strip Rhythm Strip: Sinus Tach Rate: 108 Physical Exam Const Constitutional Narrative: RASS -4. Good vent synchrony. Appears stated age. No sedation at this time. No seizure activity General Appearance: patient mechanically ventilated HEENT normocephalic, head/scalp atraumatic and moist oral mucous membranes Mouth: endotracheal tube in place and OG tube in place Eyes conjunctivae normal and no scleral icterus Neck no lymphadenopathy, supple and no JVD Chest inspection of chest normal Resp normal respiratory effort Auscultation: Negative for rales, rhonchi or wheezes Cardio regular rhythm, S1 normal heart sound, S2 normal heart sound, no murmurs, no rub and no gallops Rate: tachycardic GI normal to inspection, nondistended, normoactive bowel sounds Extremity no clubbing, cyanosis or edema Neuro Neuro Narrative: Patient does have a cough gag, corneal and pupillary reflex. Patient does withdrawal to pain and has spontaneous respirations Psych Mood & Affect: flat affect Charges/Coding Procedures Hospitalists Procedures: 40296 Critial Care 1st Hr
[2022-12-23] MEDS: fentaNYL drip 100 ML 5 MCG CONT INF (07:40)
[2022-12-23] MEDS: Chlorhexidine 15 ML PO ×2 (08:16→20:43)
[2022-12-23] MEDS: Polyethylene Glycol 3350 17 GM PACKET GT (08:16)
[2022-12-23] MEDS: Senna Tablet 1 TABLET GT ×2 (08:16→20:43)
[2022-12-23] MEDS: Metoprolol Tartrate 25 MG Tablet 12.5 MG GT (08:17)
[2022-12-23] MEDS: Aspirin 81 MG TAB.CHEW GT (08:17)
[2022-12-23] MEDS: Famotidine 20 MG Tablet GT ×2 (08:17→20:43)
--- NOTE | 2022-12-23 09:33 | CASEMGMT ---
Social Work SW spoke with pt regarding advance directives. Spouse states he believes that pt has completed living will and health care POA but he would have to look for them at home. SW updated that documents are not on file at [facility] and requested they be brought in if he is able to locate them. FRED Earl
--- NOTE | 2022-12-23 10:12 | CASEMGMT ---
Social Work SW attended ICU rounds. Pt continued to be intubated with no response. After rounds SW met with pt's spouse who was present during rounds. SW spoke with spouse regarding events of last 48 hours and offered emotional support. Spouse willing to openly speak with SW regarding pt and feelings surrounding situation. Pt states he has two daughters who are supportive and other family and friends. Spouse has received a visit from the Display Fab[employer]ator and SW will remain available for continued support. FRED Earl
[2022-12-23] MEDS: 0.9% Saline Lock 10 ML Syringe IV (10:37)
--- NOTE | 2022-12-23 10:41 | NURSING ---
2 yellow colored rings with clear stones removed from index finger on left hand and placed in denture cup. given to patient's daughter Lakia.
[2022-12-23 11:58] LABS: Partial Thromboplast Time 54.7 Seconds (24.1-36.2)
--- NOTE | 2022-12-23 12:36 | PCM.PN.CARD ---
Subjective Subjective Remains intubated. No signs of neurological recovery yet. Objective Data Vital Signs: Vital Signs Temp Pulse Resp BP Pulse Ox O2 Del Method FiO2 100 F H 101 H 16 134/77 H 100 Mechanical Ventilator 100 12/23/22 12:00 12/23/22 12:00 12/23/22 12:00 12/23/22 12:00 12/23/22 12:00 12/23/22 12:00 12/23/22 12:00 Oxygen Delivery Method Mechanical Ventilator Weight: 140 lb 10.479 oz Body Mass Index (BMI) 22.6 Intake & Output: Intake and Output for Last 24 Hours 12/21/22 12/22/22 12/23/22 23:59 23:59 23:59 Intake Total 3703.86 / 3718.16 2502.96 / 2607.96 2722.81 / 2722.81 Output Total 2375 / 2375 500 / 500 Balance 3703.86 / 2618.16 127.96 / 232.96 2222.81 / 2222.81 Lab / Micro Data 12/23/22 03:15 12/23/22 03:15 Labs: Laboratory Results - last 24 hr 12/21/22 17:00: Diff Path Review Reviewed 12/22/22 14:00: APTT 33.8 12/22/22 21:00: APTT 73.7 H 12/23/22 03:15: WBC 14.0 H, RBC 4.14 L, Hgb 11.9 L, Hct 37.0, MCV 89.4, MCH 28.7, MCHC 32.2, RDW Std Deviation 44.5 H, RDW Coeff of Suzette 13.6, Plt Count 182, MPV 11.3, Immature Gran % (Auto) 0.600, Neut % (Auto) 83.8 H, Lymph % (Auto) 9.0 L, [place] % (Auto) 6.0, Eos % (Auto) 0.2, Baso % (Auto) 0.4, Absolute Neuts (auto) 11.7 H, Absolute Lymphs (auto) 1.25, Nucleated RBC % 0, APTT 53.4 H, Sodium 139, Potassium 3.9, Chloride 111 H, Carbon Dioxide 23.0, Anion Gap 5, BUN 9, Creatinine 0.81, Estim Creat Clear Calc 64.82, Est GFR (MDRD) Af Amer 91, Est GFR (MDRD) Non-Af 76, BUN/Creatinine Ratio 11.1, Glucose 146 H, Calcium 7.9 L, Total Bilirubin 0.60, AST 198 H, ALT 245 H, Alkaline Phosphatase 109, Total Protein 6.0 L, Albumin 2.7 L, Globulin 3.3, Albumin/Globulin Ratio 0.8 L 12/23/22 04:30: Vancomycin Trough 10.3 12/23/22 10:30: APTT Cancelled 12/23/22 11:31: APTT 54.7 H Micro: Microbiology 12/21/22 17:25 Urine Catheter - Villatoro Urine Culture - Final Culture exhibits no growth. Rhythm Strip Rhythm Strip: Sinus Tach Rate: 108 Cardiology Labs/Tests 12/22/22 14:00: APTT 33.8 12/22/22 21:00: APTT 73.7 H 12/23/22 03:15: WBC 14.0 H, RBC 4.14 L, Hgb 11.9 L, Hct 37.0, MCV 89.4, MCH 28.7, MCHC 32.2, Plt Count 182, MPV 11.3, Immature Gran % (Auto) 0.600, Neut % (Auto) 83.8 H, Lymph % (Auto) 9.0 L, [place] % (Auto) 6.0, Eos % (Auto) 0.2, Baso % (Auto) 0.4, Absolute Neuts (auto) 11.7 H, Nucleated RBC % 0, APTT 53.4 H, Sodium 139, Potassium 3.9, Chloride 111 H, Carbon Dioxide 23.0, Anion Gap 5, BUN 9, Creatinine 0.81, Est GFR (MDRD) Af Amer 91, Est GFR (MDRD) Non-Af 76, BUN/Creatinine Ratio 11.1, Glucose 146 H, Calcium 7.9 L, Total Bilirubin 0.60 12/23/22 10:30: APTT Cancelled 12/23/22 11:31: APTT 54.7 H Rhythm: EKG: ECHO: Stress Test: Cardiac Cath: PCI: CT Surgery: Holter monitor: EPS: PPM: CXR: Chest CT Scan: Physical Exam Narrative Intubated on the ventilator. Heart sounds 1 and 2 noted. No murmurs noted. No wheezing noted on chest examination. No ankle edema noted. Assessment & Plan Assessment/Plan (1) Cardiopulmonary arrest with successful resuscitation: PLAN: Status post V-fib arrest. Hemodynamically stable. If neurological recovery occurs, then will need coronary angiography. (2) NSTEMI (non-ST elevated myocardial infarction): PLAN: See #1 above. Continue aspirin. For coronary angiography if neurological recovery occurs. (3) Pneumonia: QUALIFIERS: Pneumonia type: aspiration pneumonia Aspiration pneumonia type: due to gastric secretions Laterality: bilateral Lung location: unspecified part of lung Qualified Code(s): J69.0 - Pneumonitis due to inhalation of food and vomit PLAN: On [employer].
[2022-12-23] MEDS: Vital AF 1.2 Cal Liquid 1,000 ML 10 ML GT (15:02)
--- NOTE | 2022-12-23 15:03 | CHAPLAIN ---
Type of Pastoral Visit ___ Initial Visit ___ Follow-up Visit ___ On-call Visit ___ General Patient Visit ___ Spiritual Assessment ___ Family Conference ___ Bereavement ___ Rapid Response ___ Code Blue ___ Other (describe below) Pastoral Care Referral From ___ Patient ___ Family ___ Nurse ___ Physician ___ Sorter Packer ___ Grade And Center Marker ___ Other (describe below) Sacrament/Intervention ___ Active listening ___ Anointing ___ Muslim ___ Bereavement ___ Communion ___ Yris exploration ___ ___ Life review ___ Prayer ___ Reconciliation ___ Sacrament of Sick ___ Supportive presence ___ Wedding ___ Other (describe below) Pastoral Comments only one family member is in the room and she is on the phone; this bail bonding agent offers to come back another time as desired by family;
[2022-12-23 18:25] LABS: Partial Thromboplast Time 45.6 Seconds (24.1-36.2)
[2022-12-23] MEDS: HEPARIN/D5w 25,000 UNITS 25,000 UNITS/250 ML IV.SOLN. 7 UNITS CONT INF (19:46)
[2022-12-24] VITALS (35 sets, daily range): BP systolic 118–146; BP diastolic 67–95; PULSE 97–131; RESP 13–25; TEMP 37.4–37.8; O2SAT 91–100; BMI 23.1
[2022-12-24 01:06] LABS: Partial Thromboplast Time 50.4 Seconds (24.1-36.2)
[2022-12-24] MEDS: fentaNYL drip 100 ML 5 MCG CONT INF (03:31)
[2022-12-24 04:29] LABS: Absolute Lymphocyte Count 0.92 X10^3/uL (0.83-4.51); Absolute Neutrophil Count 11.3 X10^3/uL (2.0-7.7); Basophil# 0.05 X10^3/uL; Basophil% 0.4 % (0-1); Eosinophil# 0.01 X10^3/uL; Eosinophils% 0.1 % (0-5); Hematocrit 31.8 % (37-47); Hemoglobin 10.3 g/dL (12.0-15.0); Lymphocyte # 0.92 X10^3/ul (0.83-4.51); Mean Corp Hgb Conc 32.4 g/dL (32-36); Mean Corpuscular Hgb 28.5 pg (27.0-32.0); Mean Corpuscular Volume 88.1 fL (81-99); Monocyte# 0.67 X10^3/uL; Monocyte% 5.1 % (0-10); NRBC Flagged by Analyzer 0 % (0-5); Neutrophil # 11.32 X10^3/uL (2.7-7.7); Neutrophil % 86.6 % (47-70); Platelet Count 184 K/mm3 (150-450); RBC Distribution Width CV 13.3 % (11.6-14.6); RBC Distribution Width SD 43.1 fl (35.1-43.9); Red Blood Count 3.61 M/mm3 (4.2-5.4); White Blood Count 13.1 K/mm3 (4.4-11.0)
[2022-12-24 04:53] LABS: ALB/GLOB Ratio 0.7 RATIO (0.9-2.4); AST(SGOT) 93 U/L (15-37); Alanine Aminotransfer ALT/SGPT 154 U/L (13-56); Albumin, Serum 2.3 g/dL (3.2-5.0); Alkaline Phosphatase 97 U/L (45-117); Anion Gap 6 (5-15); BUN 8 mg/dL (7-18); BUN/Creat Ratio 12.7 RATIO (10-20); Calcium,Total 7.6 mg/dL (8.5-10.1); Chloride 111 mmol/L (98-107); Creatinine, Serum 0.63 mg/dL (0.55-1.02); EST Glomerular Filtration Rate 101 mL/min (>60); Est Glom Filt Rate - Afr Amer 122 mL/min (>60); Estimated Creatinine Clearance 83.34 ml/min; Globulin 3.4 g/dL (2.2-4.2); Glucose 119 mg/dL (74-106); Potassium 3.4 mmol/L (3.5-5.1); Protein, Total 5.7 g/dL (6.4-8.2); Sodium Level 140 mmol/L (136-145)
[2022-12-24] MEDS: Vancomycin HCl 750 MG in 0.9% Normal Saline (250mL Bag) 250 ML 250 MG IV (06:33)
[2022-12-24] MEDS: Piperacil/Tazobactam 3.375 GM in 0.9% Normal Saline (50mL MB+) 50 ML IV (06:40)
--- NOTE | 2022-12-24 07:18 | PN.HOSP_ITS ---
Reason for Visit Reason for Visit: Diagnoses Sepsis, unspecified organism (12/21/22) Non-ST elevation (NSTEMI) myocardial infarction (12/21/22) Cardiac arrest, cause unspecified (12/21/22) Pneumonitis due to inhalation of food and vomit (12/21/22) Severe sepsis with septic shock (12/21/22) Subjective Subjective Remains intubated, at bedside, supportive care provided Objective Data Objective Data Vital Signs: Vital Signs Temp Pulse Resp BP Pulse Ox O2 Del Method FiO2 99.8 F H 119 H 16 146/71 H 94 Mechanical Ventilator 12/24/22 07:00 12/24/22 07:00 12/24/22 07:00 12/24/22 07:00 12/24/22 07:00 12/24/22 07:00 12/24/22 07:00 Oxygen Delivery Method Mechanical Ventilator Weight: 65.3 kg Body Mass Index (BMI) 23.1 Intake & Output: Intake and Output for Last 24 Hours 12/22/22 12/23/22 12/24/22 23:59 23:59 23:59 Intake Total 2502.96 / 2607.96 3725.04 / 3830.04 325.67 / 325.67 Output Total 2375 / 2375 925 / 925 350 / 350 Balance 127.96 / 232.96 2800.04 / 2905.04 -24.33 / -24.33 Lab / Micro Data 12/24/22 04:20 12/24/22 04:20 Labs: Laboratory Results - last 24 hr 12/23/22 10:30: APTT Cancelled 12/23/22 11:31: APTT 54.7 H 12/23/22 18:00: APTT 45.6 H 12/24/22 00:40: APTT 50.4 H 12/24/22 04:20: WBC 13.1 H, RBC 3.61 L, Hgb 10.3 L, Hct 31.8 L, MCV 88.1, MCH 28.5, MCHC 32.4, RDW Std Deviation 43.1, RDW Coeff of Suzette 13.3, Plt Count 184, MPV 11.0, Immature Gran % (Auto) 0.800, Neut % (Auto) 86.6 H, Lymph % (Auto) 7.0 L, [place] % (Auto) 5.1, Eos % (Auto) 0.1, Baso % (Auto) 0.4, Absolute Neuts (auto) 11.3 H, Absolute Lymphs (auto) 0.92, Nucleated RBC % 0, Sodium 140, Potassium 3.4 L, Chloride 111 H, Carbon Dioxide 23.0, Anion Gap 6, BUN 8, Creatinine 0.63, Estim Creat Clear Calc 83.34, Est GFR (MDRD) Af Amer 122, Est GFR (MDRD) Non-Af 101, BUN/Creatinine Ratio 12.7, Glucose 119 H, Calcium 7.6 L, Total Bilirubin 0.70, AST 93 H, ALT 154 H, Alkaline Phosphatase 97, Total Protein 5.7 L, Albumin 2.3 L, Globulin 3.4, Albumin/Globulin Ratio 0.7 L Micro: Microbiology 12/21/22 17:35 Blood Culture (Wb) - Left Forearm Blood Culture - Preliminary No growth in 48 hours. 12/21/22 17:00 Blood Culture (Wb) - Left Forearm Blood Culture - Preliminary No growth in 48 hours. 12/23/22 09:30 Sputum, Tracheal Aspirate Gram Stain - Final 12/21/22 17:25 Urine Catheter - Villatoro Urine Culture - Final Culture exhibits no growth. 12/21/22 17:25 Urine Catheter - Villatoro Legionella Antigen - Final 12/21/22 17:25 Urine Catheter - Villatoro Streptococcus pneumoniae Antigen (M - Final 12/21/22 17:11 Mucosa - Nasopharyngeal Rapid RSV (DFA) - Final 12/21/22 17:05 Nasal Secretion SARS-CoV-2 & FLU Antigen (Rapid) - Final Rhythm Strip Rhythm Strip: Sinus Tach Rate: 108 Physical Exam Narrative General: Intubated and sedated HEENT: Atraumatic, normocephalic Eyes: Eyes closed, no spontaneous opening Neck: Supple Respiratory: Mechanically ventilated, Slightly scattered wheezes Cardiovascular: Sinus tach GI: Soft, nontender, nondistended Musculoskeletal: Presently sedated and not moving extremities spontaneously Neuro: Unable to participate in neuro exam secondary to intubated and sedated Skin: No rashes appreciated Psych: Unable to cooperate secondary to intubated and sedated Assessment & Plan Assessment/Plan (1) Pneumonia: QUALIFIERS: Aspiration pneumonia type: due to gastric secretions Laterality: bilateral Lung location: unspecified part of lung Pneumonia type: aspiration pneumonia Qualified Code(s): J69.0 - Pneumonitis due to inhalation of food and vomit (2) Cardiopulmonary arrest with successful resuscitation: (3) Septic shock: PLAN: Plan #Cardiac arrest with ROSC -Patient presented as an out of hospital cardiac arrest, has been started CPR prior to arrival and was continued by EMS and EMS was able to get ROSC, patient intubated in the emergency department and work-up obtained -Intubated and admitted to ICU -CT head without any bleeding or acute pathology -CTA with 1% minimal right-sided pneumothorax and pulmonary edema versus pneum onia with infiltrates -Troponin and lactic acid elevated, unclear primary or secondary at this time however lactic acid downtrending with supportive care -Suspicion for underlying infection/sepsis -Broad-spectrum antibiotics -Fluids -Patient on heparin drip -Echocardiogram ordered -12/23: Patient was spinal cord reflexes, continue to minimize sedation as possible and assess mental status, echocardiogram demonstrated EF 55% with mild apical hypokinesis and normal diastole for age, if patient improves neurologically cardiology recommended coronary angiography during this hospitalization, continue aspirin -12/24: Continue to assess neurological status, on minimal vent settings, continue present management. #Concern for sepsis from possible pneumonia. -Patient presented and had left shift on CBC in ED, creatinine was 1.43 without known baseline however today decreased to 1.05 so suspect YASH when patient presented with additional lactic acid of 8.9 and elevated liver enzymes, white blood cell count increased to 15.3 today could be reactive -Lactic acid downtrending -CT with concern for pulmonary edema versus pneumonia -Patient given fluids and BP responded -On broad-spectrum antibiotics -Panculture, blood cultures and urine cultures pending -RSV, COVID, flu negative, urine antigens negative -12/23: Do suspect aspiration, Tmax since yesterday 100.9, on antibiotics With Vanco and Zosyn, white blood cell count downtrending. Blood cultures pending, no sputum culture available, urine culture negative -12/24: Blood cultures no growth to date, still on vancomycin and Zosyn this a.m. #Elevated troponin -Initial troponin was 85. Trended to 10,605, further up trended to 25,000 -Cannot rule out NSTEMI however could be secondary to cardiac arrest and chest compressions and defibrillation -Cardiology on-call recommended starting beta-vu blood pressure tolerated so this has been started, patient on aspirin, patient on heparin drip and cardiology consulted -12/23: As above -12/24: If neurologic improvement cardiology plans for heart cath #YASH?resolved -Patient had unclear baseline however creatinine 1.43 on presentation is down trended to 0.81 with supportive care suspect YASH on admission -12/24: Creatinine 0.63, suspect this is baseline #Transaminitis -Suspect shock liver secondary to cardiac arrest and CPR versus underlying sepsis though suspect the former, continue to trend -12/23: Downtrending with supportive care #Hypokalemia -We will order further replacement DVT prophylaxis On heparin drip for elevated troponin. Time spent in the patient's overall evaluation,decision-making process, review of diagnostic data, adjustment of management, discussion with other providers, nursing nursing and ancillary staff involved in patient's care documentation, 37 minutes. Charges/Coding Visit Charges Inpatient E&M: 71613 Subs Hosp L2
--- NOTE | 2022-12-24 07:33 | PN.CC_ITS ---
Assessment & Plan Assessment/Plan (1) Cardiopulmonary arrest with successful resuscitation: PLAN: Plan RECOMMENDATIONS: 1. Minimize sedation for neurochecks 2. Okay to discontinue antibiotics from my perspective 3. Wean oxygen as tolerated. Spontaneous breathing and awakening trials per protocol 4. Attempt normothermia 5. Continue heparin drip. 6. Likely discuss prognosis in the next 24 to 48 hours with family if no improvement IMPRESSIONS: 1. Cardiopulmonary arrest secondary to ventricular fibrillation with ROSC Unclear downtime. Appears to be between 5 and 10 minutes of downtime at a minimum. Patient is currently not sedated to allow for neurochecks. We will attempt to keep normothermic given problem #3. Patient is on a heparin drip at this time. Echocardiogram does show some apical akinesis and RV dysfunction. Patient does have a substantial elevation of troponin. It is unclear if patient had an NSTEMI leading to V-fib versus a result of the cardiopulmonary arrest. Patient did have significant lactic acidosis on presentation, but this appears to be resolved. No further ectopy has been noted 2. Acute respiratory failure Patient with infiltrates, it is unclear if this is secondary to pulmonary contusion versus pneumonia. Patient is on empiric antibiotics at this time. Patient does not have significant wheezing to suggest asthma as an etiology. Patient does have a rib fracture, likely secondary to CPR. Patient reportedly has a very small pneumothorax, but does not have any tension physiology at this time. Patient should have a chest x-ray with any hemodynamic changes. Patient is passing spontaneous breathing trials, but not extubated secondary to mental status. Sputum culture pending, but the cultures are negative, so we will discontinue antibiotics 3. Possible anoxic brain injury Unclear downtime at this time. Patient did receive epinephrine x2 along with a cardioversion for V-fib arrest. Patient reportedly was posturing initially, but this has not been seen since. Patient is currently a full code. Will discuss with family about goals of therapy. 4. Asthma/GERD/CAMILO Complicates care, management, recovery and prognosis. We will need to get patient's home CPAP settings at extubation, but patient currently intubated. Patient does not appear to be in acute asthma exacerbation at this time clinically. Pepcid is likely sufficient for GI prophylaxis and GERD. Likely initiate tube feeds today. TIME: 40 minutes critical care time spent addressing patient's cardiopulmonary arrest, acute respiratory failure, possible anoxic brain injury, review of all data and collaboration with care team Subjective Subjective Patient has done well hemodynamically overnight. Neuro status is grossly unchanged. Patient will open her eyes and blinks to loud noises, but is not following commands or showing any signs of agitation. Patient has not had any other issues reported overnight. Patient did have a spontaneous breathing trial this morning was able to tolerate 40 minutes without complication. Mechanical ventilation was reinitiated secondary to mental status. Objective Data Objective Data Vital Signs: Vital Signs Temp Pulse Resp BP Pulse Ox O2 Del Method FiO2 37.7 C H 119 H 16 146/71 H 94 Mechanical Ventilator 12/24/22 07:00 12/24/22 07:00 12/24/22 07:00 12/24/22 07:00 12/24/22 07:00 12/24/22 07:00 12/24/22 07:00 Oxygen Delivery Method Mechanical Ventilator Weight: 65.3 kg Body Mass Index (BMI) 23.1 Intake & Output: Intake and Output for Last 24 Hours 12/22/22 12/23/22 12/24/22 23:59 23:59 23:59 Intake Total 2502.96 / 2607.96 3725.04 / 3830.04 325.67 / 325.67 Output Total 2375 / 2375 925 / 925 350 / 350 Balance 127.96 / 232.96 2800.04 / 2905.04 -24.33 / -24.33 Lab / Micro Data Attestation: I reviewed the patient's lab results. 12/24/22 04:20 12/24/22 04:20 Labs: Laboratory Results - last 24 hr 12/23/22 10:30: APTT Cancelled 12/23/22 11:31: APTT 54.7 H 12/23/22 18:00: APTT 45.6 H 12/24/22 00:40: APTT 50.4 H 12/24/22 04:20: WBC 13.1 H, RBC 3.61 L, Hgb 10.3 L, Hct 31.8 L, MCV 88.1, MCH 28.5, MCHC 32.4, RDW Std Deviation 43.1, RDW Coeff of Suzette 13.3, Plt Count 184, MPV 11.0, Immature Gran % (Auto) 0.800, Neut % (Auto) 86.6 H, Lymph % (Auto) 7.0 L, [place] % (Auto) 5.1, Eos % (Auto) 0.1, Baso % (Auto) 0.4, Absolute Neuts (auto) 11.3 H, Absolute Lymphs (auto) 0.92, Nucleated RBC % 0, Sodium 140, Potassium 3.4 L, Chloride 111 H, Carbon Dioxide 23.0, Anion Gap 6, BUN 8, Creatinine 0.63, Estim Creat Clear Calc 83.34, Est GFR (MDRD) Af Amer 122, Est GFR (MDRD) Non-Af 101, BUN/Creatinine Ratio 12.7, Glucose 119 H, Calcium 7.6 L, Total Bilirubin 0.70, AST 93 H, ALT 154 H, Alkaline Phosphatase 97, Total Protein 5.7 L, Albumin 2.3 L, Globulin 3.4, Albumin/Globulin Ratio 0.7 L Micro: Microbiology 12/21/22 17:35 Blood Culture (Wb) - Left Forearm Blood Culture - Preliminary No growth in 48 hours. 12/21/22 17:00 Blood Culture (Wb) - Left Forearm Blood Culture - Preliminary No growth in 48 hours. 12/23/22 09:30 Sputum, Tracheal Aspirate Gram Stain - Final 12/21/22 17:25 Urine Catheter - Villatoro Urine Culture - Final Culture exhibits no growth. 12/21/22 17:25 Urine Catheter - Villatoro Legionella Antigen - Final 12/21/22 17:25 Urine Catheter - Villatoro Streptococcus pneumoniae Antigen (M - Final 12/21/22 17:11 Mucosa - Nasopharyngeal Rapid RSV (DFA) - Final 12/21/22 17:05 Nasal Secretion SARS-CoV-2 & FLU Antigen (Rapid) - Final Rhythm Strip Rhythm Strip: Sinus Tach Rate: 107 Physical Exam Const Constitutional Narrative: RASS -4. Good vent synchrony. Appears stated age. No sedation at this time. No seizure activity. Eyes open with spontaneous blinking General Appearance: patient mechanically ventilated HEENT normocephalic, head/scalp atraumatic and moist oral mucous membranes Eyes conjunctivae normal and no scleral icterus Neck no lymphadenopathy, supple and no JVD Chest inspection of chest normal Resp normal respiratory effort Auscultation: Negative for rales, rhonchi or wheezes Cardio regular rhythm, S1 normal heart sound, S2 normal heart sound, no murmurs, no rub and no gallops Rate: tachycardic GI normal to inspection, nondistended, normoactive bowel sounds Extremity no clubbing, cyanosis or edema Neuro Neuro Narrative: Patient does have a cough gag, corneal and pupillary reflex. Patient does withdrawal to pain and has spontaneous respirations Psych Mood & Affect: flat affect Charges/Coding Procedures Hospitalists Procedures: 74320 Critial Care 1st Hr
[2022-12-24] MEDS: Chlorhexidine 15 ML PO ×2 (08:21→21:26)
[2022-12-24] MEDS: Aspirin 81 MG TAB.CHEW GT (08:22)
[2022-12-24] MEDS: Famotidine 20 MG Tablet GT ×2 (08:22→21:25)
[2022-12-24] MEDS: Polyethylene Glycol 3350 17 GM PACKET GT (08:22)
[2022-12-24] MEDS: Senna Tablet 1 TABLET GT ×2 (08:22→21:24)
[2022-12-24] MEDS: Metoprolol Tartrate 25 MG Tablet 12.5 MG GT (08:22)
[2022-12-24] MEDS: Potassium Chloride 10mEq/100mL 10 MEQ/100 ML IV.SOLN. 100 MEQ IV BOLUS ×2 (08:22→09:37)
[2022-12-24 08:41] LABS: Partial Thromboplast Time 55.7 Seconds (24.1-36.2)
--- NOTE | 2022-12-24 09:48 | PN.CARD_ITS ---
Subjective Subjective Remains intubated. Sedation being weaned off. Per RN, patient opens her eyes occasionally. Objective Data Vital Signs: Vital Signs Temp Pulse Resp BP Pulse Ox O2 Del Method FiO2 99.9 F H 106 H 20 H 134/74 H 92 Mechanical Ventilator 25 12/24/22 08:00 12/24/22 09:00 12/24/22 09:00 12/24/22 09:00 12/24/22 09:00 12/24/22 09:00 12/24/22 09:00 Oxygen Delivery Method Mechanical Ventilator Weight: 143 lb 15.39 oz Body Mass Index (BMI) 23.1 Intake & Output: Intake and Output for Last 24 Hours 12/22/22 12/23/22 12/24/22 23:59 23:59 23:59 Intake Total 2502.96 / 2607.96 3725.04 / 3830.04 827.96 / 827.96 Output Total 2375 / 2375 925 / 925 350 / 350 Balance 127.96 / 232.96 2800.04 / 2905.04 477.96 / 477.96 Lab / Micro Data 12/24/22 04:20 12/24/22 04:20 Labs: Laboratory Results - last 24 hr 12/23/22 10:30: APTT Cancelled 12/23/22 11:31: APTT 54.7 H 12/23/22 18:00: APTT 45.6 H 12/24/22 00:40: APTT 50.4 H 12/24/22 04:20: WBC 13.1 H, RBC 3.61 L, Hgb 10.3 L, Hct 31.8 L, MCV 88.1, MCH 28.5, MCHC 32.4, RDW Std Deviation 43.1, RDW Coeff of Suzette 13.3, Plt Count 184, MPV 11.0, Immature Gran % (Auto) 0.800, Neut % (Auto) 86.6 H, Lymph % (Auto) 7.0 L, [place] % (Auto) 5.1, Eos % (Auto) 0.1, Baso % (Auto) 0.4, Absolute Neuts (auto) 11.3 H, Absolute Lymphs (auto) 0.92, Nucleated RBC % 0, Sodium 140, Potassium 3.4 L, Chloride 111 H, Carbon Dioxide 23.0, Anion Gap 6, BUN 8, Creatinine 0.63, Estim Creat Clear Calc 83.34, Est GFR (MDRD) Af Amer 122, Est GFR (MDRD) Non-Af 101, BUN/Creatinine Ratio 12.7, Glucose 119 H, Calcium 7.6 L, Total Bilirubin 0.70, AST 93 H, ALT 154 H, Alkaline Phosphatase 97, Total Protein 5.7 L, Albumin 2.3 L, Globulin 3.4, Albumin/Globulin Ratio 0.7 L 12/24/22 08:05: APTT 55.7 H Micro: Microbiology 12/21/22 17:35 Blood Culture (Wb) - Left Forearm Blood Culture - Preliminary No growth in 48 hours. 12/21/22 17:00 Blood Culture (Wb) - Left Forearm Blood Culture - Preliminary No growth in 48 hours. 12/23/22 09:30 Sputum, Tracheal Aspirate Gram Stain - Final 12/21/22 17:25 Urine Catheter - Villatoro Urine Culture - Final Culture exhibits no growth. Rhythm Strip Rhythm Strip: Sinus Tach Rate: 107 Cardiology Labs/Tests 12/23/22 10:30: APTT Cancelled 12/23/22 11:31: APTT 54.7 H 12/23/22 18:00: APTT 45.6 H 12/24/22 00:40: APTT 50.4 H 12/24/22 04:20: WBC 13.1 H, RBC 3.61 L, Hgb 10.3 L, Hct 31.8 L, MCV 88.1, MCH 28.5, MCHC 32.4, Plt Count 184, MPV 11.0, Immature Gran % (Auto) 0.800, Neut % (Auto) 86.6 H, Lymph % (Auto) 7.0 L, [place] % (Auto) 5.1, Eos % (Auto) 0.1, Baso % (Auto) 0.4, Absolute Neuts (auto) 11.3 H, Nucleated RBC % 0, Sodium 140, Potassium 3.4 L, Chloride 111 H, Carbon Dioxide 23.0, Anion Gap 6, BUN 8, Creatinine 0.63, Est GFR (MDRD) Af Amer 122, Est GFR (MDRD) Non-Af 101, BUN/Creatinine Ratio 12.7, Glucose 119 H, Calcium 7.6 L, Total Bilirubin 0.70 12/24/22 08:05: APTT 55.7 H Rhythm: EKG: ECHO: Stress Test: Cardiac Cath: PCI: CT Surgery: Holter monitor: EPS: PPM: CXR: Chest CT Scan: Physical Exam Narrative Intubated on the ventilator. Heart sounds 1 and 2 noted. No murmurs noted. No wheezing noted on chest examination. No ankle edema noted. Assessment & Plan Assessment/Plan (1) Cardiopulmonary arrest with successful resuscitation: PLAN: For coronary angiography depending upon neurological recovery. (2) NSTEMI (non-ST elevated myocardial infarction): PLAN: See #1 above. Continue aspirin. Start Plavix. Stop heparin. (3) Pneumonia: QUALIFIERS: Pneumonia type: aspiration pneumonia Aspiration pneumonia type: due to gastric secretions Laterality: bilateral Lung location: unspecified part of lung Qualified Code(s): J69.0 - Pneumonitis due to inhalation of food and vomit PLAN: On Tybasyn.
[2022-12-24] MEDS: Clopidogrel Bisulfate 75 MG Tablet PO (10:24)
--- NOTE | 2022-12-24 12:58 | CHAPLAIN ---
Type of Pastoral Visit ___ Initial Visit _x__ Follow-up Visit ___ On-call Visit ___ General Patient Visit ___ Spiritual Assessment ___ Family Conference ___ Bereavement ___ Rapid Response ___ Code Blue ___ Other (describe below) Pastoral Care Referral From ___ Patient _x__ Family ___ Nurse ___ Physician ___ Transportation Solutions Manager ___ Photocopying Equipment Repairer ___ Other (describe below) Sacrament/Intervention _x__ Active listening ___ Anointing ___ Mosque ___ Bereavement ___ Communion ___ Yris exploration ___ ___ Life review _x__ Prayer ___ Reconciliation ___ Sacrament of Sick _x__ Supportive presence ___ Wedding ___ Other (describe below) Pastoral Comments spouse is alone in the room with patient; pt is still on vent; offer of support and presence; time given to listen to spouse who still refers to shock of this event; spouse admits to many questions and discussion about 'having few answers' follows; prayer is offered at permission by spouse; will to continue to be available as desired
[2022-12-24] MEDS: Vital AF 1.2 Cal Liquid 1,000 ML 10 ML GT (14:22)
[2022-12-24] MEDS: fentaNYL drip 100 ML 12.5 MCG CONT INF (17:34)
--- NOTE | 2022-12-24 19:45 | NURSING ---
Pt's neuro status assessed: no response to painful stimuli to either hand/arm, RLE withdrew to pain, LLE demonstrated decorticate posturing. Babinski reflex positive to paula feet w/lg toes demonstrating dorsiflexion and remaining toes fanning out. Cough/gag/corneal reflexes intact. Discussed all findings and their meanings with family at bedside. Discussed the meaning of different code statuses, not suggesting any changes at the moment. Family able to restate all information discussed appropriately. Family plans to be present tomorrow to discuss careplan w/doctor. Dtrs are tearful, but appreciative of information received. stated she doesn't want to live like this. Emotional support provided to all present, encouraged to call ICU w/any questions that may come up overnight or write them down and bring in to share w/doctor at bedside tomorrow.
[2022-12-24] MEDS: Metoprolol Tartrate 25 MG Tablet GT (21:24)
[2022-12-25] VITALS (35 sets, daily range): BP systolic 120–177; BP diastolic 73–110; PULSE 86–137; RESP 13–22; TEMP 37.9–38.2; O2SAT 94–100; BMI 22.9
[2022-12-25] MEDS: CHLORHEXIDINE GLUC 2% CLOTH 1 EACH TOWELETTE TOPICAL (00:40)
[2022-12-25 03:12] LABS: Absolute Lymphocyte Count 0.91 X10^3/uL (0.83-4.51); Absolute Neutrophil Count 10.7 X10^3/uL (2.0-7.7); Basophil# 0.04 X10^3/uL; Basophil% 0.3 % (0-1); Eosinophil# 0.03 X10^3/uL; Eosinophils% 0.2 % (0-5); Hematocrit 32.2 % (37-47); Hemoglobin 10.9 g/dL (12.0-15.0); Lymphocyte # 0.91 X10^3/ul (0.83-4.51); Lymphocyte % 7.2 % (19-41); Mean Corp Hgb Conc 33.9 g/dL (32-36); Mean Corpuscular Hgb 29.2 pg (27.0-32.0); Mean Corpuscular Volume 86.3 fL (81-99); Mean Platelet Vol. 10.6 fl (6.2-12.0); Monocyte# 0.93 X10^3/uL; Monocyte% 7.3 % (0-10); NRBC Flagged by Analyzer 0 % (0-5); Neutrophil # 10.67 X10^3/uL (2.7-7.7); Neutrophil % 84.1 % (47-70); Platelet Count 230 K/mm3 (150-450); RBC Distribution Width CV 13.2 % (11.6-14.6); RBC Distribution Width SD 41.3 fl (35.1-43.9); Red Blood Count 3.73 M/mm3 (4.2-5.4); White Blood Count 12.7 K/mm3 (4.4-11.0)
[2022-12-25 03:30] LABS: ALB/GLOB Ratio 0.6 RATIO (0.9-2.4); AST(SGOT) 76 U/L (15-37); Alanine Aminotransfer ALT/SGPT 131 U/L (13-56); Albumin, Serum 2.3 g/dL (3.2-5.0); Alkaline Phosphatase 120 U/L (45-117); Anion Gap 7 (5-15); BUN 12 mg/dL (7-18); BUN/Creat Ratio 22.7 RATIO (10-20); Calcium,Total 8.3 mg/dL (8.5-10.1); Chloride 108 mmol/L (98-107); Creatinine, Serum 0.53 mg/dL (0.55-1.02); EST Glomerular Filtration Rate 123 mL/min (>60); Est Glom Filt Rate - Afr Amer 149 mL/min (>60); Estimated Creatinine Clearance 99.07 ml/min; Globulin 3.8 g/dL (2.2-4.2); Glucose 115 mg/dL (74-106); Potassium 3.5 mmol/L (3.5-5.1); Protein, Total 6.1 g/dL (6.4-8.2); Sodium Level 137 mmol/L (136-145)
--- NOTE | 2022-12-25 06:42 | PN.HOSP_ITS ---
Reason for Visit Reason for Visit: Diagnoses Sepsis, unspecified organism (12/21/22) Non-ST elevation (NSTEMI) myocardial infarction (12/21/22) Cardiac arrest, cause unspecified (12/21/22) Pneumonitis due to inhalation of food and vomit (12/21/22) Severe sepsis with septic shock (12/21/22) Subjective Subjective Patient resting in bed, remains intubated, not purposely interacting at this time Objective Data Objective Data Vital Signs: Vital Signs Temp Pulse Resp BP Pulse Ox O2 Del Method FiO2 100.6 F H 124 H 15 146/80 H 99 Mechanical Ventilator 12/25/22 06:00 12/25/22 06:00 12/25/22 06:00 12/25/22 06:00 12/25/22 06:00 12/25/22 06:00 12/25/22 06:00 Oxygen Delivery Method Mechanical Ventilator Weight: 64.8 kg Body Mass Index (BMI) 22.9 Intake & Output: Intake and Output for Last 24 Hours 12/23/22 12/24/22 12/25/22 23:59 23:59 23:59 Intake Total 3725.04 / 3830.04 1659.79 / 1767.29 354.17 / 354.17 Output Total 925 / 925 975 / 1275 650 / 650 Balance 2800.04 / 2905.04 684.79 / 492.29 -295.83 / -295.83 Lab / Micro Data 12/25/22 03:05 12/25/22 03:05 Labs: Laboratory Results - last 24 hr 12/24/22 08:05: APTT 55.7 H 12/25/22 03:05: WBC 12.7 H, RBC 3.73 L, Hgb 10.9 L, Hct 32.2 L, MCV 86.3, MCH 29.2, MCHC 33.9, RDW Std Deviation 41.3, RDW Coeff of Suzette 13.2, Plt Count 230, MPV 10.6, Immature Gran % (Auto) 0.900, Neut % (Auto) 84.1 H, Lymph % (Auto) 7.2 L, [place] % (Auto) 7.3, Eos % (Auto) 0.2, Baso % (Auto) 0.3, Absolute Neuts (auto) 10.7 H, Absolute Lymphs (auto) 0.91, Nucleated RBC % 0, Sodium 137, Potassium 3.5, Chloride 108 H, Carbon Dioxide 22.0, Anion Gap 7, BUN 12, Creatinine 0.53 L , Estim Creat Clear Calc 99.07, Est GFR (MDRD) Af Amer 149, Est GFR (MDRD) Non- Af 123, BUN/Creatinine Ratio 22.7 H, Glucose 115 H, Calcium 8.3 L, Total Bi lirubin 0.60, AST 76 H, ALT 131 H, Alkaline Phosphatase 120 H, Total Protein 6.1 L, Albumin 2.3 L, Globulin 3.8, Albumin/Globulin Ratio 0.6 L Micro: Microbiology 12/21/22 17:35 Blood Culture (Wb) - Left Forearm Blood Culture - Preliminary No growth in 48 hours. 12/21/22 17:00 Blood Culture (Wb) - Left Forearm Blood Culture - Preliminary No growth in 48 hours. 12/23/22 09:30 Sputum, Tracheal Aspirate Gram Stain - Final 12/21/22 17:25 Urine Catheter - Villatoro Urine Culture - Final Culture exhibits no growth. 12/21/22 17:25 Urine Catheter - Villatoro Legionella Antigen - Final 12/21/22 17:25 Urine Catheter - Villatoro Streptococcus pneumoniae Antigen (M - Final 12/21/22 17:11 Mucosa - Nasopharyngeal Rapid RSV (DFA) - Final 12/21/22 17:05 Nasal Secretion SARS-CoV-2 & FLU Antigen (Rapid) - Final Rhythm Strip Rhythm Strip: Sinus Tach Rate: 107 Physical Exam Narrative General: Intubated and sedated HEENT: Atraumatic, normocephalic Eyes: Eyes closed, no spontaneous opening Neck: Supple Respiratory: Mechanically ventilated, Slightly scattered wheezes Cardiovascular: Sinus tach GI: Soft, nontender, nondistended Musculoskeletal: Presently sedated and not moving extremities spontaneously Neuro: Unable to participate in neuro exam secondary to intubated and sedated Skin: No rashes appreciated Psych: Unable to cooperate secondary to intubated and sedated Assessment & Plan Assessment/Plan (1) Pneumonia: QUALIFIERS: Aspiration pneumonia type: due to gastric secretions Laterality: bilateral Lung location: unspecified part of lung Pneumonia type: aspiration pneumonia Qualified Code(s): J69.0 - Pneumonitis due to inhalation of food and vomit (2) Cardiopulmonary arrest with successful resuscitation: (3) Septic shock: PLAN: Plan #Cardiac arrest with ROSC -Patient presented as an out of hospital cardiac arrest, has been started CPR prior to arrival and was continued by EMS and EMS was able to get ROSC, patient intubated in the emergency department and work-up obtained -Intubated and admitted to ICU -CT head without any bleeding or acute pathology -CTA with 1% minimal right-sided pneumothorax and pulmonary edema versus pneumonia with infiltrates -Troponin and lactic acid elevated, unclear primary or secondary at this time however lactic acid downtrending with supportive care -Suspicion for underlying infection/sepsis -Broad-spectrum antibiotics -Fluids -Patient on heparin drip -Echocardiogram ordered -12/23: Patient was spinal cord reflexes, continue to minimize sedation as possible and assess mental status, echocardiogram demonstrated EF 55% with mild apical hypokinesis and normal diastole for age, if patient improves neurologically cardiology recommended coronary angiography during this hospitalization, continue aspirin -12/24: Continue to assess neurological status, on minimal vent settings, continue present management. -12/25: Cardiac cath pending neurologic recovery however given lack of significant improvement seems to have poor prognosis, off heparin and on Plavix and aspirin #Concern for sepsis from possible pneumonia?ruled out -Patient presented and had left shift on CBC in ED, creatinine was 1.43 without known baseline however today decreased to 1.05 so suspect YASH when patient presented with additional lactic acid of 8.9 and elevated liver enzymes, white blood cell count increased to 15.3 today could be reactive -Lactic acid downtrending -CT with concern for pulmonary edema versus pneumonia -Patient given fluids and BP responded -On broad-spectrum antibiotics -Panculture, blood cultures and urine cultures pending -RSV, COVID, flu negative, urine antigens negative -12/23: Do suspect aspiration, Tmax since yesterday 100.9, on antibiotics With Vanco and Zosyn, white blood cell count downtrending. Blood cultures pending, no sputum culture available, urine culture negative -12/24: Blood cultures no growth to date, still on vancomycin and Zosyn this a.m. -12/25: Antibiotics discontinued, cultures no growth #Elevated troponin -Initial troponin was 85. Trended to 10,605, further up trended to 25,000 -Cannot rule out NSTEMI however could be secondary to cardiac arrest and chest compressions and defibrillation -Cardiology on-call recommended starting beta-vu blood pressure tolerated so this has been started, patient on aspirin, patient on heparin drip and cardiology consulted -12/23: As above -12/24: If neurologic improvement cardiology plans for heart cath -12/25: As above #YASH?resolved -Patient had unclear baseline however creatinine 1.43 on presentation is down trended to 0.81 with supportive care suspect YASH on admission -12/24: Creatinine 0.63, suspect this is baseline #Transaminitis -Suspect shock liver secondary to cardiac arrest and CPR versus underlying sepsis though suspect the former, continue to trend -12/23: Downtrending with supportive care #Hypokalemia -We will order further replacement DVT prophylaxis On heparin drip for elevated troponin. Time spent in the patient's overall evaluation,decision-making process, review of diagnostic data, adjustment of management, discussion with other providers, nursing nursing and ancillary staff involved in patient's care documentation, 37 minutes. Charges/Coding Visit Charges Inpatient E&M: 60229 Subs Hosp L2
--- NOTE | 2022-12-25 07:10 | PN.CC_ITS ---
Assessment & Plan Assessment/Plan (1) Cardiopulmonary arrest with successful resuscitation: PLAN: Plan RECOMMENDATIONS: 1. Minimize sedation for neurochecks 2. Continue to discuss prognosis with family 3. Wean oxygen as tolerated. Spontaneous breathing and awakening trials per protocol 4. Attempt normothermia 5. Initiate DVT Lovenox 6. Likely discuss possible change in CODE STATUS IMPRESSIONS: 1. Cardiopulmonary arrest secondary to ventricular fibrillation with ROSC Unclear downtime. Appears to be between 5 and 10 minutes of downtime at a minimum. Patient is currently not sedated to allow for neurochecks. We will attempt to keep normothermic given problem #3. Patient is on a heparin drip at this time. Echocardiogram does show some apical akinesis and RV dysfunction. Patient does have a substantial elevation of troponin. It is unclear if patient had an NSTEMI leading to V-fib versus a result of the cardiopulmonary arrest. Patient did have significant lactic acidosis on presentation, but this appears to be resolved. Patient with sinus tachycardia, likely secondary to neuro agitation and central fever 2. Acute respiratory failure Patient with infiltrates, it is unclear if this is secondary to pulmonary contusion versus pneumonia. Patient is on empiric antibiotics at this time. Patient does not have significant wheezing to suggest asthma as an etiology. Patient does have a rib fracture, likely secondary to CPR. Patient reportedly has a very small pneumothorax, but does not have any tension physiology at this time. Patient should have a chest x-ray with any hemodynamic changes. Patient is passing spontaneous breathing trials, but not extubated secondary to mental status. Monitor off antibiotics. 3. Anoxic brain injury Unclear downtime. Patient does appear to be neurologically devastated at this time. Patient did receive epinephrine x2 along with a cardioversion for V- fib arrest. Patient reportedly was posturing initially, but this has not been seen since. Patient is currently a full code. Patient would likely more appropriately be a DNR Comfort Care arrest at minimum. Will discuss with family about goals of therapy. 4. Asthma/GERD/CAMILO Complicates care, management, recovery and prognosis. We will need to get patient's home CPAP settings at extubation, but patient currently intubated. Patient does not appear to be in acute asthma exacerbation at this time clinica lly. Pepcid is likely sufficient for GI prophylaxis and GERD. Likely initiate tube feeds today. Addendum 9:45 AM: Extensive discussion with patient's daughters and their spouses at the bedside. Patient's was not able to be present, but they did state that they had extensive conversations overnight. Family was updated on patient's prognosis and current status. After thorough discussion, family believes that the will elect for DNR Comfort Care arrest at this time. They have called multiple family members to visit, but anticipate comfort care measures over the weekend. Family is very clear that she is stated that she would never want to live on a machine or in a facility for any reason. We will await the 's phone call to verify goals of therapy. For now, patient will remain a full code, but appears to be hemodynamically stable. Would recommend calling if this changes abruptly before he conversation can be had to formally change CODE STATUS. TIME: 77 minutes critical care time spent addressing patient's cardiopulmonary arrest, acute respiratory failure, possible anoxic brain injury, review of all data and collaboration with care team Subjective Subjective Patient did okay overnight from a hemodynamic standpoint. Patient continues to have mild fever. Patient is now having decerebrate posturing with stimulation and upgoing Babinski. Patient continues to have difficulty with ventilator synchrony. Patient seen on a spontaneous breathing trial and appeared comfortable. Objective Data Objective Data Vital Signs: Vital Signs Temp Pulse Resp BP Pulse Ox O2 Del Method FiO2 38.1 C H 124 H 15 146/80 H 99 Mechanical Ventilator 12/25/22 06:00 12/25/22 06:00 12/25/22 06:00 12/25/22 06:00 12/25/22 06:00 12/25/22 06:00 12/25/22 06:00 Oxygen Delivery Method Mechanical Ventilator Weight: 64.8 kg Body Mass Index (BMI) 22.9 Intake & Output: Intake and Output for Last 24 Hours 12/23/22 12/24/22 12/25/22 23:59 23:59 23:59 Intake Total 3725.04 / 3830.04 1659.79 / 1767.29 354.17 / 354.17 Output Total 925 / 925 975 / 1275 650 / 650 Balance 2800.04 / 2905.04 684.79 / 492.29 -295.83 / -295.83 Lab / Micro Data Attestation: I reviewed the patient's lab results. 12/25/22 03:05 12/25/22 03:05 Labs: Laboratory Results - last 24 hr 12/24/22 08:05: APTT 55.7 H 12/25/22 03:05: WBC 12.7 H, RBC 3.73 L, Hgb 10.9 L, Hct 32.2 L, MCV 86.3, MCH 29.2, MCHC 33.9, RDW Std Deviation 41.3, RDW Coeff of Suzette 13.2, Plt Count 230, MPV 10.6, Immature Gran % (Auto) 0.900, Neut % (Auto) 84.1 H, Lymph % (Auto) 7.2 L, [place] % (Auto) 7.3, Eos % (Auto) 0.2, Baso % (Auto) 0.3, Absolute Neuts (auto) 10.7 H, Absolute Lymphs (auto) 0.91, Nucleated RBC % 0, Sodium 137, Potassium 3.5, Chloride 108 H, Carbon Dioxide 22.0, Anion Gap 7, BUN 12, Creatinine 0.53 L , Estim Creat Clear Calc 99.07, Est GFR (MDRD) Af Amer 149, Est GFR (MDRD) Non- Af 123, BUN/Creatinine Ratio 22.7 H, Glucose 115 H, Calcium 8.3 L, Total Bilirubin 0.60, AST 76 H, ALT 131 H, Alkaline Phosphatase 120 H, Total Protein 6.1 L, Albumin 2.3 L, Globulin 3.8, Albumin/Globulin Ratio 0.6 L Micro: Microbiology 12/21/22 17:35 Blood Culture (Wb) - Left Forearm Blood Culture - Preliminary No growth in 48 hours. 12/21/22 17:00 Blood Culture (Wb) - Left Forearm Blood Culture - Preliminary No growth in 48 hours. 12/23/22 09:30 Sputum, Tracheal Aspirate Gram Stain - Final 12/21/22 17:25 Urine Catheter - Villatoro Urine Culture - Final Culture exhibits no growth. 12/21/22 17:25 Urine Catheter - Villatoro Legionella Antigen - Final 12/21/22 17:25 Urine Catheter - Villatoro Streptococcus pneumoniae Antigen (M - Final 12/21/22 17:11 Mucosa - Nasopharyngeal Rapid RSV (DFA) - Final 12/21/22 17:05 Nasal Secretion SARS-CoV-2 & FLU Antigen (Rapid) - Final Rhythm Strip Rhythm Strip: Sinus Tach Rate: 122 Physical Exam Const Constitutional Narrative: RASS -4. On spontaneous breathing trial during my evaluation. Appears stated age. No sedation at this time. No seizure activity. Eyes open with spontaneous blinking General Appearance: patient mechanically ventilated HEENT normocephalic, head/scalp atraumatic and moist oral mucous membranes Eyes conjunctivae normal and no scleral icterus Neck no lymphadenopathy, supple and no JVD Chest inspection of chest normal Resp normal respiratory effort Auscultation: Negative for rales, rhonchi or wheezes Cardio regular rhythm, S1 normal heart sound, S2 normal heart sound, no murmurs, no rub and no gallops Rate: tachycardic GI normal to inspection, nondistended, normoactive bowel sounds Extremity Extremity Narrative: Some cyanosis noted of the toes. Remains on cooling blanket General Extremity: Negative for clubbing or edema Neuro Neuro Narrative: Patient does have a cough gag, corneal and pupillary reflex. Patient does posture to pain and has spontaneous respirations Psych Mood & Affect: flat affect Charges/Coding Procedures Hospitalists Procedures: 87747 Critial Care 1st Hr Multi Select Codes Hospitalists' Procedures Procedures: 12586 Critial Care Addl 30 Min
[2022-12-25] MEDS: Chlorhexidine 15 ML PO ×2 (08:14→21:29)
[2022-12-25] MEDS: Famotidine 20 MG Tablet GT ×2 (10:11→21:28)
[2022-12-25] MEDS: Aspirin 81 MG TAB.CHEW GT (10:11)
[2022-12-25] MEDS: Senna Tablet 1 TABLET GT ×2 (10:11→21:28)
[2022-12-25] MEDS: Metoprolol Tartrate 50 MG Tablet GT (10:11)
[2022-12-25] MEDS: Clopidogrel Bisulfate 75 MG Tablet PO (10:11)
[2022-12-25] MEDS: Polyethylene Glycol 3350 17 GM PACKET GT (10:11)
--- NOTE | 2022-12-25 11:58 | CASEMGMT ---
Social Work SW participated in ICU rounds, pt's daughters and sons-in-law present. SW spoke w/family in ICU waiting room, offered support. SW remains available should any supportive needs arise. FLORENCIO Britt
--- NOTE | 2022-12-25 14:53 | CHAPLAIN ---
Type of Pastoral Visit ___ Initial Visit _x__ Follow-up Visit ___ On-call Visit ___ General Patient Visit ___ Spiritual Assessment ___ Family Conference ___ Bereavement ___ Rapid Response ___ Code Blue ___ Other (describe below) Pastoral Care Referral From ___ Patient ___ Family ___ Nurse ___ Physician _x__ Foot Roentgenologist ___ Process Treater ___ Other (describe below) Sacrament/Intervention ___ Active listening ___ Anointing ___ Islam ___ Bereavement ___ Communion ___ Yris exploration ___ ___ Life review ___ Prayer ___ Reconciliation ___ Sacrament of Sick _x__ Supportive presence ___ Wedding _x__ Other (describe below) Pastoral Comments SW asked this arch support maker for any materials that could be given to this family about grieving and children; this arch support maker met with several family members and offered what resources that are available here in the hospital; the daughter that had this specific question was not in the room at the time of visit; offered ongoing support and presence as desired; family cannot think of anything that will help in this situation; spouse is very quiet and just shakes his head
[2022-12-25] MEDS: fentaNYL drip 100 ML 7.5 MCG CONT INF (19:34)
[2022-12-25] MEDS: Metoprolol Tartrate 100 MG Tablet GT (21:28)
[2022-12-26] VITALS (30 sets, daily range): BP systolic 105–182; BP diastolic 54–100; PULSE 62–132; RESP 12–21; TEMP 37.5–37.9; O2SAT 95–99; BMI 22.4
[2022-12-26 05:40] LABS: Absolute Lymphocyte Count 1.29 X10^3/uL (0.83-4.51); Absolute Neutrophil Count 7.7 X10^3/uL (2.0-7.7); Basophil# 0.06 X10^3/uL; Basophil% 0.6 % (0-1); Eosinophil# 0.06 X10^3/uL; Eosinophils% 0.6 % (0-5); Hematocrit 35.9 % (37-47); Hemoglobin 12.2 g/dL (12.0-15.0); Lymphocyte # 1.29 X10^3/ul (0.83-4.51); Lymphocyte % 12.4 % (19-41); Mean Corpuscular Hgb 29.1 pg (27.0-32.0); Mean Corpuscular Volume 85.7 fL (81-99); Mean Platelet Vol. 10.5 fl (6.2-12.0); Monocyte# 1.21 X10^3/uL; Monocyte% 11.6 % (0-10); NRBC Flagged by Analyzer 0 % (0-5); Neutrophil # 7.73 X10^3/uL (2.7-7.7); Neutrophil % 74.2 % (47-70); Platelet Count 280 K/mm3 (150-450); RBC Distribution Width CV 13.2 % (11.6-14.6); RBC Distribution Width SD 41.4 fl (35.1-43.9); Red Blood Count 4.19 M/mm3 (4.2-5.4); White Blood Count 10.4 K/mm3 (4.4-11.0)
[2022-12-26] MEDS: Enoxaparin 40 MG/0.4 ML Syringe SC (05:49)
[2022-12-26 05:57] LABS: ALB/GLOB Ratio 0.6 RATIO (0.9-2.4); AST(SGOT) 85 U/L (15-37); Alanine Aminotransfer ALT/SGPT 121 U/L (13-56); Albumin, Serum 2.6 g/dL (3.2-5.0); Alkaline Phosphatase 118 U/L (45-117); Anion Gap 5 (5-15); BUN 12 mg/dL (7-18); Calcium,Total 8.5 mg/dL (8.5-10.1); Chloride 107 mmol/L (98-107); Creatinine, Serum 0.63 mg/dL (0.55-1.02); EST Glomerular Filtration Rate 101 mL/min (>60); Est Glom Filt Rate - Afr Amer 122 mL/min (>60); Estimated Creatinine Clearance 83.34 ml/min; Glucose 108 mg/dL (74-106); Potassium 3.4 mmol/L (3.5-5.1); Protein, Total 6.6 g/dL (6.4-8.2); Sodium Level 139 mmol/L (136-145)
--- NOTE | 2022-12-26 07:16 | PN.CC_ITS ---
Assessment & Plan Assessment/Plan (1) Cardiopulmonary arrest with successful resuscitation: PLAN: Plan RECOMMENDATIONS: 1. Minimize sedation for neurochecks 2. Titrate medications for hypertension 3. Wean oxygen as tolerated. Spontaneous breathing and awakening trials per protocol 4. Attempt normothermia 5. Continue DVT Lovenox 6. Possible palliative measures in the next 48 hours IMPRESSIONS: 1. Cardiopulmonary arrest secondary to ventricular fibrillation with ROSC Unclear downtime. Appears to be between 5 and 10 minutes of downtime at a minimum. Patient is currently not sedated to allow for neurochecks. We will attempt to keep normothermic given problem #3. Patient is on a DVT prophylaxis only at this time. Echocardiogram does show some apical akinesis and RV dysfunction. Patient does have a substantial elevation of troponin. It is unclear if patient had an NSTEMI leading to V-fib versus a result of the cardiopulmonary arrest. Patient did have significant lactic acidosis on presentation, but this appears to be resolved. Patient with sinus tachycardia, likely secondary to neuro agitation and central fever 2. Acute respiratory failure Patient with infiltrates, it is unclear if this is secondary to pulmonary contusion versus pneumonia. Patient is on empiric antibiotics at this time. Patient does not have significant wheezing to suggest asthma as an etiology. Patient does have a rib fracture, likely secondary to CPR. Patient reportedly has a very small pneumothorax, but does not have any tension physiology at this time. Patient should have a chest x-ray with any hemodynamic changes. Patient is passing spontaneous breathing trials, but not extubated secondary to mental status. Monitor off antibiotics. 3. Anoxic brain injury Unclear downtime. Patient does appear to be neurologically devastated at this time. Patient did receive epinephrine x2 along with a cardioversion for V- fib arrest. Patient's daughter does admit that the actual downtime is probably much more than 10 minutes. Patient reportedly was posturing initially, but this has not been seen since. Patient is currently a DNR Comfort Care arrest with tentative plans for palliative measures in the next 48 hours 4. Asthma/GERD/CAMILO Complicates care, management, recovery and prognosis. Patient does not appear to be in acute asthma exacerbation at this time clinically. Pepcid is likely sufficient for GI prophylaxis and GERD. Likely initiate tube feeds today. TIME: 31 minutes critical care time spent addressing patient's cardiopulmonary arrest, acute respiratory failure, possible anoxic brain injury, review of all data and collaboration with care team Subjective Subjective Patient did okay overnight. Patient has continued to have a low-grade fever, but hypertension and tachycardia have been more prevalent. Patient did have to be transitioned over to assist control overnight. There has been no significant change in neuro status. Did discuss with the patient's at length yesterday. Patient made DNR Comfort Care arrest, but plans are for comfort measures Wednesday or Wednesday. There is currently coordination with the family about getting visitors present if necessary. Objective Data Objective Data Vital Signs: Vital Signs Temp Pulse Resp BP Pulse Ox O2 Del Method FiO2 37.6 C H 120 H 18 182/100 H 98 Mechanical Ventilator 12/26/22 07:00 12/26/22 07:00 12/26/22 07:00 12/26/22 07:00 12/26/22 07:00 12/26/22 07:00 12/26/22 07:00 Oxygen Delivery Method Mechanical Ventilator Weight: 63 kg Body Mass Index (BMI) 22.4 Intake & Output: Intake and Output for Last 24 Hours 12/24/22 12/25/22 12/26/22 23:59 23:59 23:59 Intake Total 1659.79 / 1767.29 548.67 / 706.17 295.0 / 295.0 Output Total 975 / 1275 1450 / 1650 450 / 450 Balance 684.79 / 492.29 -901.33 / -943.83 -155.0 / -155.0 Lab / Micro Data Attestation: I reviewed the patient's lab results. 12/26/22 05:30 12/26/22 05:30 Labs: Laboratory Results - last 24 hr 12/26/22 05:30: WBC 10.4, RBC 4.19 L, Hgb 12.2, Hct 35.9 L, MCV 85.7, MCH 29.1, MCHC 34.0, RDW Std Deviation 41.4, RDW Coeff of Suzette 13.2, Plt Count 280, MPV 10.5, Immature Gran % (Auto) 0.600, Neut % (Auto) 74.2 H, Lymph % (Auto) 12.4 L, [place] % (Auto) 11.6 H, Eos % (Auto) 0.6, Baso % (Auto) 0.6, Absolute Neuts (auto) 7.7, Absolute Lymphs (auto) 1.29, Nucleated RBC % 0, Sodium 139, Potassium 3.4 L , Chloride 107, Carbon Dioxide 27.0, Anion Gap 5, BUN 12, Creatinine 0.63, Estim Creat Clear Calc 83.34, Est GFR (MDRD) Af Amer 122, Est GFR (MDRD) Non-Af 101, BUN/Creatinine Ratio 19.0, Glucose 108 H, Calcium 8.5, Total Bilirubin 0.70, AST 85 H, ALT 121 H, Alkaline Phosphatase 118 H, Total Protein 6.6, Albumin 2.6 L, Globulin 4.0, Albumin/Globulin Ratio 0.6 L Micro: Microbiology 12/23/22 09:30 Sputum, Tracheal Aspirate Gram Stain - Final 12/23/22 09:30 Sputum, Tracheal Aspirate Respiratory Culture - Final Culture exhibits no growth. 12/21/22 17:35 Blood Culture (Wb) - Left Forearm Blood Culture - Preliminary No growth in 48 hours. 12/21/22 17:00 Blood Culture (Wb) - Left Forearm Blood Culture - Preliminary No growth in 48 hours. 12/21/22 17:25 Urine Catheter - Villatoro Urine Culture - Final Culture exhibits no growth. 12/21/22 17:25 Urine Catheter - Villatoro Legionella Antigen - Final 12/21/22 17:25 Urine Catheter - Villatoro Streptococcus pneumoniae Antigen (M - Final 12/21/22 17:11 Mucosa - Nasopharyngeal Rapid RSV (DFA) - Final 12/21/22 17:05 Nasal Secretion SARS-CoV-2 & FLU Antigen (Rapid) - Final Rhythm Strip Rhythm Strip: Sinus Tach Rate: 110 Physical Exam Const Constitutional Narrative: RASS -4. On settings during my evaluation. Appears stated age. No sedation at this time. No seizure activity. Eyes open with spontaneous blinking General Appearance: patient mechanically ventilated HEENT normocephalic, head/scalp atraumatic and moist oral mucous membranes Eyes conjunctivae normal and no scleral icterus Neck no lymphadenopathy, supple and no JVD Chest inspection of chest normal Resp normal respiratory effort Auscultation: Negative for rales, rhonchi or wheezes Cardio regular rhythm, S1 normal heart sound, S2 normal heart sound, no murmurs, no rub and no gallops Rate: tachycardic GI normal to inspection, nondistended, normoactive bowel sounds Extremity no clubbing, cyanosis or edema Extremity Narrative: Some cyanosis noted of the toes. Remains on cooling blanket General Extremity: Negative for clubbing or edema Neuro Neuro Narrative: Patient does have a cough gag, corneal and pupillary reflex. Patient does posture to pain and has spontaneous respirations Psych Mood & Affect: flat affect Charges/Coding Procedures Hospitalists Procedures: 96248 Critial Care 1st Hr
--- NOTE | 2022-12-26 07:50 | PCM.PN.HOSP ---
Reason for Visit Reason for Visit: Diagnoses Sepsis, unspecified organism (12/21/22) Non-ST elevation (NSTEMI) myocardial infarction (12/21/22) Cardiac arrest, cause unspecified (12/21/22) Pneumonitis due to inhalation of food and vomit (12/21/22) Severe sepsis with septic shock (12/21/22) Subjective Subjective Remains intubated, not purposefully responding Objective Data Objective Data Vital Signs: Vital Signs Temp Pulse Resp BP Pulse Ox O2 Del Method FiO2 99.6 F H 120 H 18 182/100 H 98 Mechanical Ventilator 12/26/22 07:00 12/26/22 07:00 12/26/22 07:00 12/26/22 07:00 12/26/22 07:00 12/26/22 07:00 12/26/22 07:00 Oxygen Delivery Method Mechanical Ventilator Weight: 63 kg Body Mass Index (BMI) 22.4 Intake & Output: Intake and Output for Last 24 Hours 12/24/22 12/25/22 12/26/22 23:59 23:59 23:59 Intake Total 1659.79 / 1767.29 548.67 / 706.17 295.0 / 295.0 Output Total 975 / 1275 1450 / 1650 450 / 450 Balance 684.79 / 492.29 -901.33 / -943.83 -155.0 / -155.0 Lab / Micro Data 12/26/22 05:30 12/26/22 05:30 Labs: Laboratory Results - last 24 hr 12/26/22 05:30: WBC 10.4, RBC 4.19 L, Hgb 12.2, Hct 35.9 L, MCV 85.7, MCH 29.1, MCHC 34.0, RDW Std Deviation 41.4, RDW Coeff of Suzette 13.2, Plt Count 280, MPV 10.5, Immature Gran % (Auto) 0.600, Neut % (Auto) 74.2 H, Lymph % (Auto) 12.4 L, [place] % (Auto) 11.6 H, Eos % (Auto) 0.6, Baso % (Auto) 0.6, Absolute Neuts (auto) 7.7, Absolute Lymphs (auto) 1.29, Nucleated RBC % 0, Sodium 139, Potassium 3.4 L, Chloride 107, Carbon Dioxide 27.0, Anion Gap 5, BUN 12, Creatinine 0.63, Estim Creat Clear Calc 83.34, Est GFR (MDRD) Af Amer 122, Est GFR (MDRD) Non-Af 101, BUN/Creatinine Ratio 19.0, Glucose 108 H, Calcium 8.5, Total Bilirubin 0.70, AST 85 H, ALT 121 H, Alkaline Phosphatase 118 H, Total Protein 6.6, Albumin 2.6 L, Globulin 4.0, Albumin/Globulin Ratio 0.6 L Micro: Microbiology 12/23/22 09:30 Sputum, Tracheal Aspirate Gram Stain - Final 12/23/22 09:30 Sputum, Tracheal Aspirate Respiratory Culture - Final Culture exhibits no growth. 12/21/22 17:35 Blood Culture (Wb) - Left Forearm Blood Culture - Preliminary No growth in 48 hours. 12/21/22 17:00 Blood Culture (Wb) - Left Forearm Blood Culture - Preliminary No growth in 48 hours. 12/21/22 17:25 Urine Catheter - Villatoro Urine Culture - Final Culture exhibits no growth. 12/21/22 17:25 Urine Catheter - Villatoro Legionella Antigen - Final 12/21/22 17:25 Urine Catheter - Villatoro Streptococcus pneumoniae Antigen (M - Final 12/21/22 17:11 Mucosa - Nasopharyngeal Rapid RSV (DFA) - Final 12/21/22 17:05 Nasal Secretion SARS-CoV-2 & FLU Antigen (Rapid) - Final Rhythm Strip Rhythm Strip: Sinus Tach Rate: 110 Physical Exam Narrative General: Intubated and sedated HEENT: Atraumatic, normocephalic Eyes: Eyes closed, no spontaneous opening Neck: Supple Respiratory: Mechanically ventilated, no wheezes heard today Cardiovascular: Sinus tach GI: Soft, nontender, nondistended Musculoskeletal: Presently sedated and not moving extremities spontaneously Neuro: Unable to participate in neuro exam secondary to intubated and sedated Skin: No rashes appreciated Psych: Unable to cooperate secondary to intubated and sedated Assessment & Plan Assessment/Plan (1) Pneumonia: QUALIFIERS: Aspiration pneumonia type: due to gastric secretions Laterality: bilateral Lung location: unspecified part of lung Pneumonia type: aspiration pneumonia Qualified Code(s): J69.0 - Pneumonitis due to inhalation of food and vomit (2) Cardiopulmonary arrest with successful resuscitation: (3) Septic shock: PLAN: Plan #Cardiac arrest with ROSC -Patient presented as an out of hospital cardiac arrest, has been started CPR prior to arrival and was continued by EMS and EMS was able to get ROSC, patient intubated in the emergency department and work-up obtained -Intubated and admitted to ICU -CT head without any bleeding or acute pathology -CTA with 1% minimal right-sided pneumothorax and pulmonary edema versus pneumonia with infiltrates -Troponin and lactic acid elevated, unclear primary or secondary at this time however lactic acid downtrending with supportive care -Suspicion for underlying infection/sepsis -Broad-spectrum antibiotics -Fluids -Patient on heparin drip -Echocardiogram ordered -12/23: Patient was spinal cord reflexes, continue to minimize sedation as possible and assess mental status, echocardiogram demonstrated EF 55% with mild apical hypokinesis and normal diastole for age, if patient improves neurologically cardiology recommended coronary angiography during this hospitalization, continue aspirin -12/24: Continue to assess neurological status, on minimal vent settings, continue present management. -12/25: Cardiac cath pending neurologic recovery however given lack of significant improvement seems to have poor prognosis, off heparin and on Plavix and aspirin -12/26: Continue to monitor neurologic status, patient without significant neurologic improvement, now DNR with intubation, possible palliative measures in the next 1 to 2 days #Concern for sepsis from possible pneumonia?ruled out -Patient presented and had left shift on CBC in ED, creatinine was 1.43 without known baseline however today decreased to 1.05 so suspect YASH when patient presented with additional lactic acid of 8.9 and elevated liver enzymes, white blood cell count increased to 15.3 today could be reactive -Lactic acid downtrending -CT with concern for pulmonary edema versus pneumonia -Patient given fluids and BP responded -On broad-spectrum antibiotics -Panculture, blood cultures and urine cultures pending -RSV, COVID, flu negative, urine antigens negative -12/23: Do suspect aspiration, Tmax since yesterday 100.9, on antibiotics With Vanco and Zosyn, white blood cell count downtrending. Blood cultures pending, no sputum culture available, urine culture negative -12/24: Blood cultures no growth to date, still on vancomycin and Zosyn this a.m. -12/25: Antibiotics discontinued, cultures no growth #Elevated troponin -Initial troponin was 85. Trended to 10,605, further up trended to 25,000 -Cannot rule out NSTEMI however could be secondary to cardiac arrest and chest compressions and defibrillation -Cardiology on-call recommended starting beta-vu blood pressure tolerated so this has been started, patient on aspirin, patient on heparin drip and cardiology consulted -12/23: As above -12/24: If neurologic improvement cardiology plans for heart cath -12/25: As above #YASH?resolved -Patient had unclear baseline however creatinine 1.43 on presentation is down trended to 0.81 with supportive care suspect YASH on admission -12/24: Creatinine 0.63, suspect this is baseline #Transaminitis -Suspect shock liver secondary to cardiac arrest and CPR versus underlying sepsis though suspect the former, continue to trend -12/23: Downtrending with supportive care #Hypokalemia -We will order further replacement DVT prophylaxis On heparin drip for elevated troponin. Time spent in the patient's overall evaluation,decision-making process, review of diagnostic data, adjustment of management, discussion with other providers, nursing nursing and ancillary staff involved in patient's care documentation, 37 minutes. Charges/Coding Visit Charges Inpatient E&M: 11745 Subs Hosp L2
[2022-12-26] MEDS: Metoprolol Tartrate 100 MG Tablet 150 MG GT (08:30)
[2022-12-26] MEDS: Potassium Chloride Oral Soln 20 MEQ/15 ML UDC 40 MEQ PO (08:31)
[2022-12-26] MEDS: Clopidogrel Bisulfate 75 MG Tablet PO (08:32)
[2022-12-26] MEDS: Chlorhexidine 15 ML PO ×2 (08:32→19:51)
[2022-12-26] MEDS: Aspirin 81 MG TAB.CHEW GT (08:32)
[2022-12-26] MEDS: Polyethylene Glycol 3350 17 GM PACKET GT (08:32)
[2022-12-26] MEDS: Senna Tablet 1 TABLET GT (08:32)
[2022-12-26] MEDS: Famotidine 20 MG Tablet GT (08:32)
[2022-12-26] MEDS: CHLORHEXIDINE GLUC 2% CLOTH 1 EACH TOWELETTE TOPICAL (08:33)
[2022-12-26] MEDS: fentaNYL drip 100 ML 7.5 MCG CONT INF (11:01)
--- NOTE | 2022-12-26 15:08 | CASEMGMT ---
Social Work SW spoke w/pt's and daughter in room, offered support. FLORENCIO Britt
--- NOTE | 2022-12-26 19:25 | NURSING ---
Discussed careplan for terminal extubation, including medications of morphine and ativan, discussed multipurpose uses of each medication. Family states understanding. Emotional support provided to all, denied additional questions and concerns at this moment.
--- NOTE | 2022-12-26 19:38 | NURSING ---
Family asked to step outside of room, RT Lola Fernandez and this RN to perform extubation.
--- NOTE | 2022-12-26 19:42 | NURSING ---
ETT and OGT removed at family's request after DNRCC order placed; hygiene provided, drips stopped, extra equipment removed from room; White gerber table set up outside of pt's room. Family invited back in to room.
[2022-12-26] MEDS: LORazepam 2 MG/ML Syringe IV ×3 (19:51→23:55)
[2022-12-26] MEDS: Morphine 2 MG/ML Syringe IV ×3 (19:51→23:55)
[2022-12-26] MEDS: 0.9% Saline Lock 10 ML Syringe IV (21:37)
[2022-12-27] MEDS: LORazepam 2 MG/ML Syringe IV ×2 (01:33→05:32)
[2022-12-27] MEDS: Morphine 2 MG/ML Syringe IV ×2 (01:34→05:33)
[2022-12-27 08:00] VITALS: BP 105/70; PULSE 150; RESP 12; TEMP 1021.6; TEMP 549.8; O2SAT 66
--- NOTE | 2022-12-27 08:52 | PN.HOSP_ITS ---
Reason for Visit Reason for Visit: Diagnoses Sepsis, unspecified organism (12/21/22) Non-ST elevation (NSTEMI) myocardial infarction (12/21/22) Cardiac arrest, cause unspecified (12/21/22) Pneumonitis due to inhalation of food and vomit (12/21/22) Severe sepsis with septic shock (12/21/22) Subjective Subjective Spoke with last night and family ready for comfort measures, patient extubated and orders given for comfort medication, patient remains in ICU, hospice consulted Objective Data Objective Data Vital Signs: Vital Signs Temp Pulse Resp BP Pulse Ox O2 Del Method FiO2 1021.6 F H 150 H 12 105/70 66 Room Air 25 12/27/22 08:00 12/27/22 08:00 12/27/22 08:00 12/27/22 08:00 12/27/22 08:00 12/27/22 08:00 12/26/22 18:00 Oxygen Delivery Method Room Air Weight: 63 kg Body Mass Index (BMI) 22.4 Intake & Output: Intake and Output for Last 24 Hours 12/25/22 12/26/22 12/27/22 23:59 23:59 23:59 Intake Total 548.67 / 706.17 538.25 / 538.25 Output Total 1450 / 1650 1000 / 1000 75 / 75 Balance -901.33 / -943.83 -461.75 / -461.75 -75 / -75 Lab / Micro Data 12/26/22 05:30 12/26/22 05:30 Micro: Microbiology 12/21/22 17:00 Blood Culture (Wb) - Left Forearm Blood Culture - Final No growth in 5 days. 12/21/22 17:35 Blood Culture (Wb) - Left Forearm Blood Culture - Final No growth in 5 days. 12/23/22 09:30 Sputum, Tracheal Aspirate Gram Stain - Final 12/23/22 09:30 Sputum, Tracheal Aspirate Respiratory Culture - Final Culture exhibits no growth. 12/21/22 17:25 Urine Catheter - Villatoro Urine Culture - Final Culture exhibits no growth. 12/21/22 17:25 Urine Catheter - Villatoro Legionella Antigen - Final 12/21/22 17:25 Urine Catheter - Villatoro Streptococcus pneumoniae Antigen (M - Final 12/21/22 17:11 Mucosa - Nasopharyngeal Rapid RSV (DFA) - Final 12/21/22 17:05 Nasal Secretion SARS-CoV-2 & FLU Antigen (Rapid) - Final Rhythm Strip Rhythm Strip: Sinus Tach Rate: 110 Physical Exam Narrative General: Laying in bed, no purposeful movements or interactions HEENT: Atraumatic Eyes: Opening eyes are moving limbs spontaneously Neck: Supple Respiratory: Stat increase in labored breathing Extremities: Spontaneously moving extremities, does have some posturing Neuro: Unable to participate in neuro exam Psych: Able to cooperate Assessment & Plan Assessment/Plan (1) Pneumonia: QUALIFIERS: Pneumonia type: aspiration pneumonia Aspiration pneumonia type: due to gastric secretions Laterality: bilateral Lung location: unspecified part of lung Qualified Code(s): J69.0 - Pneumonitis due to inhalation of food and vomit (2) Cardiopulmonary arrest with successful resuscitation: (3) Septic shock: PLAN: Plan #Cardiac arrest with ROSC -Patient presented as an out of hospital cardiac arrest, has been started CPR prior to arrival and was continued by EMS and EMS was able to get ROSC, patient intubated in the emergency department and work-up obtained -Intubated and admitted to ICU -CT head without any bleeding or acute pathology -CTA with 1% minimal right-sided pneumothorax and pulmonary edema versus pne umonia with infiltrates -Troponin and lactic acid elevated, unclear primary or secondary at this time however lactic acid downtrending with supportive care -Suspicion for underlying infection/sepsis -Broad-spectrum antibiotics -Fluids -Patient on heparin drip -Echocardiogram ordered -12/23: Patient was spinal cord reflexes, continue to minimize sedation as possible and assess mental status, echocardiogram demonstrated EF 55% with mild apical hypokinesis and normal diastole for age, if patient improves neurologically cardiology recommended coronary angiography during this hospitalization, continue aspirin -12/24: Continue to assess neurological status, on minimal vent settings, continue present management. -12/25: Cardiac cath pending neurologic recovery however given lack of significant improvement seems to have poor prognosis, off heparin and on Plavix and aspirin -12/26: Continue to monitor neurologic status, patient without significant neurologic improvement, now DNR with intubation, possible palliative measures in the next 1 to 2 days -12/27: Family wishes for comfort measures, patient extubated 12/26, comfort orders entered, hospice consulted #Concern for sepsis from possible pneumonia?ruled out -Patient presented and had left shift on CBC in ED, creatinine was 1.43 without known baseline however today decreased to 1.05 so suspect YASH when patient presented with additional lactic acid of 8.9 and elevated liver enzymes, white blood cell count increased to 15.3 today could be reactive -Lactic acid downtrending -CT with concern for pulmonary edema versus pneumonia -Patient given fluids and BP responded -On broad-spectrum antibiotics -Panculture, blood cultures and urine cultures pending -RSV, COVID, flu negative, urine antigens negative -12/23: Do suspect aspiration, Tmax since yesterday 100.9, on antibiotics With Vanco and Zosyn, white blood cell count downtrending. Blood cultures pending, no sputum culture available, urine culture negative -12/24: Blood cultures no growth to date, still on vancomycin and Zosyn this a.m. -12/25: Antibiotics discontinued, cultures no growth -12/27: Family wishes for comfort measures, patient extubated 12/26, comfort orders entered, hospice consulted #Elevated troponin -Initial troponin was 85. Trended to 10,605, further up trended to 25,000 -Cannot rule out NSTEMI however could be secondary to cardiac arrest and chest compressions and defibrillation -Cardiology on-call recommended starting beta-vu blood pressure tolerated so this has been started, patient on aspirin, patient on heparin drip and cardiology consulted -12/23: As above -12/24: If neurologic improvement cardiology plans for heart cath -12/25: As above -12/27: Family wishes for comfort measures, patient extubated 12/26, comfort orders entered, hospice consulted #YASH?resolved -Patient had unclear baseline however creatinine 1.43 on presentation is down trended to 0.81 with supportive care suspect YASH on admission -12/24: Creatinine 0.63, suspect this is baseline -12/27: Family wishes for comfort measures, patient extubated 12/26, comfort orders entered, hospice consulted #Transaminitis -Suspect shock liver secondary to cardiac arrest and CPR versus underlying sepsis though suspect the former, continue to trend -12/23: Downtrending with supportive care -12/27: Family wishes for comfort measures, patient extubated 12/26, comfort orders entered, hospice consulted Time spent in the patient's overall evaluation,decision-making process, review of diagnostic data, adjustment of management, discussion with other providers, nursing nursing and ancillary staff involved in patient's care documentation, 20 minutes. Charges/Coding Visit Charges Inpatient E&M: 56563 Subs Hosp L1
[2022-12-27] MEDS: morphine 10 MG/ML Syringe IV (14:46)
[2022-12-27] MEDS: 0.9% Saline Lock 10 ML Syringe IV (14:48)
--- NOTE | 2022-12-27 14:58 | DCINST_ITS ---
Discharge Instructions Diet Discharge Diet: No restrictions Follow Up Care Test Results: Test results from this visit will be discussed in further detail at your follow- up appointment, if applicable. Discharge Plan Admission Admit Date/Time: 12/21/22 20:58 Primary Reason for Your Visit: Cardiac arrest Attending Provider: Cait Benoit Primary Care Provider: Chris Mallory Consulting Providers: Andre Kirkpatrick; Jt Dunaway; Inga Morgan Instructions Patient Instructions: Sudden Cardiac Arrest Discharge Orders/Prescriptions Referrals / Follow Up: Chris Mallory MD [Primary Care Provider] - Disposition Disposition (needs filled in before D/C Order can be placed): Hospice in Medical Facility
--- NOTE | 2022-12-27 14:59 | DS.PCM_ITS ---
Providers Date of Admission: 12/21/22 Date of Discharge: 12/27/22 Primary Care Physician: Dr. Chris Mallory MD Consultations 12/21/22 22:38 Consult: Cardiology Routine Consulting Provider: Inga Morgan Reason for Consult: Elevated troponin EMERGENT Consult: No Notified: Yes Date Notified: 12/22/22 Time Notified: 08:11 Method of Notification: Text Method of Consult:: In-Person Consult: Operations Business Partner / Pulmonary Medicine Routine Consulting Provider: Andre Kirkpatrick Reason for Consult: Critical care on vent EMERGENT Consult: No Notified: Yes Date Notified: 12/21/22 Time Notified: 21:06 Method of Notification: ED Physician Initiated Reason For Visit: CARDIAC ARREST Diagnosis Discharge Diagnosis (1) Cardiopulmonary arrest with successful resuscitation: Status: Acute Code(s): I46.9 - Cardiac arrest, cause unspecified Plan #Cardiac arrest with ROSC #Concern for sepsis from possible pneumonia?ruled out #Elevated troponin, unable to determine NSTEMI type I or type II #YASH?resolved #Transaminitis Hospital Course Procedures Intubation and Transthoracic echo Summary of Care Provided Minutes Spent on Discharge: 36 Hospital Course: 67-year-old female with history of CAMILO and GERD and asthma presented to [place] emergency department 12/21/2022 after suffering an out of hospital cardiac arr est. Patient and her were clear and would in the backyard when her suddenly found her slumped over, she was not responsive so he began CPR and called 911. EMS arrived and performed ACLS and defibrillation and achieved ROSC. In the ED a Artemio airway was changed to an ET tube and she was placed on mechanical ventilation. Initial troponin 85 and repeat troponin was 10,605. Hospitalist consulted for admission and she is admitted to the intensive care unit. She had a CT head without any bleeding or acute pathology and a CTA with a questionable 1% minimal right-sided pneumothorax and pulmonary edema versus pneumonia with infiltrates. Troponins and lactic were elevated when she was started on fluids and broad-spectrum antibiotics for concerns for pneumonia and sepsis and she was also started on heparin drip and echocardiogram was ordered. EF was 55% with mild apical hypokinesis and cardiology recommended if patient had neurologic improvement cardiac cath would be warranted. Heparin was changed to aspirin and Plavix ultimately sepsis and pneumonia ruled out and antibiotics were discontinued. Patient was treated with supportive care however did not have meaningful neurologic recovery and ultimately after discussions on prognosis family opted to make her DNR CC. Patient was extubated 12/26/2022 and transferred to inpatient hospice 12/27/2022 Physical Exam Narrative General: Laying in bed, no purposeful movements or interactions HEENT: Atraumatic Eyes: Opening eyes are moving limbs spontaneously Neck: Supple Respiratory: Stat increase in labored breathing Extremities: Spontaneously moving extremities, does have some posturing Neuro: Unable to participate in neuro exam Psych: Able to cooperate Weight / BMI Weight Weight: 63 kg Body Mass Index (BMI) 22.4 ABG / Lab / Microbiology Data 12/26/22 05:30 12/26/22 05:30 Microbiology: Microbiology 12/21/22 17:00 Blood Culture (Wb) - Left Forearm Blood Culture - Final No growth in 5 days. 12/21/22 17:35 Blood Culture (Wb) - Left Forearm Blood Culture - Final No growth in 5 days. 12/23/22 09:30 Sputum, Tracheal Aspirate Gram Stain - Final 12/23/22 09:30 Sputum, Tracheal Aspirate Respiratory Culture - Final Culture exhibits no growth. 12/21/22 17:25 Urine Catheter - Villatoro Urine Culture - Final Culture exhibits no growth. 12/21/22 17:25 Urine Catheter - Villatoro Legionella Antigen - Final 12/21/22 17:25 Urine Catheter - Villatoro Streptococcus pneumoniae Antigen (M - Final 12/21/22 17:11 Mucosa - Nasopharyngeal Rapid RSV (DFA) - Final 12/21/22 17:05 Nasal Secretion SARS-CoV-2 & FLU Antigen (Rapid) - Final D/C Instructions Discharge Diet: No restrictions Meaningful Use Info Meaningful Use Diagnoses (Choose all that apply): None applicable Discharge Plan Admission Admit Date/Time: 12/21/22 20:58 Primary Reason for Your Visit: Cardiac arrest Attending Provider: Cait Benoit Primary Care Provider: Chris Mallory Consulting Providers: Andre Kirkpatrick; Jt Dunaway; Inga Morgan Instructions Patient Instructions: Sudden Cardiac Arrest Discharge Orders/Prescriptions Referrals / Follow Up: Chris Mallory MD [Primary Care Provider] - Disposition Disposition (needs filled in before D/C Order can be placed): Hospice in Medical Facility Charges/Coding Visit Charges Inpatient E&M: 68527 Disch Hosp >30min
[2022-12-27 16:32] VITALS: PULSE 134; O2SAT 54
== END 2022-12-27 16:35 | disposition hospice, inpatient (51) | DRG 280 ==
LOC: ED 20:25 → ICU 21:31
PROVIDERS: Internal Medicine Critical Care Medicine; Admitting Provider Hospitalist; Emergency Provider Emergency Medicine; PCP Family Medicine; Visit Provider Internal Medicine
DX: I49.01 Ventricular fibrillation (principal); I21.4 Non-ST elevation (NSTEMI) myocardial infarction; J96.00 Acute respiratory failure, unspecified whether with hypoxia or hypercapnia; S27.0XXA Traumatic pneumothorax, initial encounter; N17.9 Acute kidney failure, unspecified; G93.1 Anoxic brain damage, not elsewhere classified; S22.41XA Multiple fractures of ribs, right side, initial encounter for closed fracture; E87.20 Acidosis, unspecified; I46.2 Cardiac arrest due to underlying cardiac condition; I10 Essential (primary) hypertension; G47.33 Obstructive sleep apnea (adult) (pediatric); K21.9 Gastro-esophageal reflux disease without esophagitis; X58.XXXA Exposure to other specified factors, initial encounter; R74.01 Elevation of levels of liver transaminase levels; Z66 Do not resuscitate; Z79.82 Long term (current) use of aspirin; Z79.899 Other long term (current) drug therapy
CPT/HCPCS: 31500; 31720; 36415; 36600; 51702; 70450; 71045; 71275; 74018; 80053; 80202; 81001; 82550; 82803; 83605; 83735; 84478; 84484; 85025; 85610; 85730; 87040; 87070; 87086; 87205; 87428; 87449; 87807; 93005; 93306; 94002; 94003; 94762; 97162; 97802; 97803; 99252; 99285; J7030; J7040; J7050; Q9967; A4216; G0463